=== PATIENT | female | born 1975 | race Caucasian/White ===

== ENCOUNTER 2016-08-17 16:10 | Emergency (ER) | payer OTHER ==
[2016-08-17 16:18] VITALS: TEMP 97.7; BMI 20.5
[2016-08-17] MEDS ORDERED: SODIUM CHLORIDE 0.9% 1000 ML INFUS.BAG IV ONE (16:35)
[2016-08-17] MEDS ORDERED: METOCLOPRAMIDE HCL INJECTION 10 MG/2 ML VIAL IVPB ONE (16:36)
[2016-08-17] MEDS ORDERED: KETOROLAC TROMETHAMINE 30 MG/1 ML VIAL IVPUSH ONE (16:36)
--- NOTE | 2016-08-17 16:41 | PDOC ---
[id number] 138/79 100 08/17/16 16:15 08/17/16 16:15 08/17/16 16:15 08/17/16 16:15 08/17/16 16:15 ED Treatment Course - LABORATORY CBC & Chemistry Diagram: 08/17/16 16:52 08/17/16 16:52 Progress Note - Progress Note Progress Note: brief triage assessment 41 y/o woman with htn and depression c/o headache for 2 weeks, and pressure on her chest for 2 days. Was seen at [facility] on Wednesday 8 days ago for chronic headache and had head ct and meds but the headache continues. She was told the head CT was normal. Feeling more depressed and saw her psychiatrist, started prozac on Wednesday, denies suicidal thoughts. exam with normal head and neck, clear lungs, heart rr nl, abd neg, extrem nl assess: chronic headache for weeks, no fever, no trauma, reports nl ct head 8 days ago depression under care of psychiatrist chest pressure will give meds for headache, toradol and reglan will check labs, troponin and ecg, although most likely symptoms related to depression for further evaluation *DC/Admit/Observation/Transfer Diagnosis at time of Disposition: Headache Qualifiers: Headache type: unspecified Headache chronicity pattern: unspecified pattern Intractability: not intractable Qualified Code(s): R51 - Headache - Discharge Dispostion Disposition: HOME Condition at time of disposition: Good - Referrals Referrals: Jeffrey Ortiz MD [Primary Care Provider] - 3 days - Patient Instructions Printed Discharge Instructions: DI for Headache Additional Instructions: -You were seen today for headache -Your labs were normal except for low potassium -Rest and stay well-hydrated -Take ibuprofen as prescribed for pain -Return here for sudden/worsening headache, weakness in your arms or legs, change in your speech, fever, difficulty walking, or any other concerning symptoms
--- NOTE | 2016-08-17 16:55 | PDOC ---
History of Present Illness - General Chief Complaint: Headache Stated Complaint: PAIN Time Seen by Provider: 08/17/16 16:27 History Source: Patient Exam Limitations: No Limitations - History of Present Illness Initial Comments: 08/17/16 16:55 CHIEF COMPLAINT: Headache HISTORY OF PRESENT ILLNESS: This is a 41 year old female with a history of HTN and depression (follows with a psychiatrist, recently started an SSRI) who presents complaining of headache for the past 2 weeks. She was seen in the ED at [facility] about one week ago and had a CT scan, which she reports was normal. She denies nausea/vomiting, change in vision, fevers/chills, weakness, difficulty ambulating, or any other symptoms. She initially reported chest pain in triage, but now denies. Vital signs on arrival are notable for pulse of 100. REVIEW OF SYSTEMS: GENERAL/CONSTITUTIONAL: No fever or chills. No weakness. No weight change. HEAD, EYES, EARS, NOSE AND THROAT: No change in vision. No ear pain or discharge. No sore throat. CARDIOVASCULAR: No chest pain or palpitations. RESPIRATORY: No cough, wheezing, or shortness of breath. GASTROINTESTINAL: No nausea, vomiting, diarrhea or constipation. GENITOURINARY: No dysuria, frequency, or change in urination. MUSCULOSKELETAL: No joint or muscle swelling or pain. Neck pain; no back pain. SKIN: No rash or easy bruising. NEUROLOGIC: Posterior headache and neck pain. No vertigo, loss of consciousness , or loss of sensation. PSYCHIATRIC: Depression; no SI/HI/AH/VH. ENDOCRINE: No increased thirst. No abnormal weight change. HEMATOLOGIC/LYMPHATIC: No anemia, easy bleeding, or history of blood clots. ALLERGIC/IMMUNOLOGIC: No hives or skin allergy. No latex allergy. PHYSICAL EXAM: GENERAL: The patient is awake, alert, and fully oriented, in no acute distress. ENT: Pupils equal, round and reactive to light, extraocular movements intact, sclera anicteric, conjunctiva clear. Neck supple; able to turn head right and left 45 degrees, look up and down without difficulty. LUNGS: Clear to auscultation bilaterally. Normal excursion. No respiratory distress or use of accessory muscles. CV: RRR, S1/S2, no MRG. Cap refill < 2 sec. ABDOMEN: Soft, non-distended, non-tender. EXTREMITIES: Normal range of motion, no edema. NEUROLOGICAL: Normal speech, normal gait. CN II-XII grossly intact. PSYCH: Normal mood, normal affect. SKIN: Warm, dry, normal turgor, no rashes or lesions noted. Past History - Past Medical History Allergies/Adverse Reactions: Allergies Allergy/AdvReac Type Severity Reaction Status Date / Time No Known Allergies Allergy Verified 08/17/16 16:14 Home Medications: Ambulatory Orders Fluoxetine HCl [Prozac -] 20 mg PO DAILY 08/17/16 Ibuprofen [Motrin -] 600 mg PO QID PRN #30 tablet 08/17/16 HTN: Yes - Psycho/Social/Smoking Cessation Hx Anxiety: No Suicidal Ideation: No Smoking History: Never smoked Have you smoked in the past 12 months: No Information on smoking cessation initiated: No Hx Alcohol Use: No Drug/Substance Use Hx: No Substance Use Type: None *Physical Exam - Vital Signs Last Vital Signs Temp Pulse Resp BP Pulse Ox 97.7 F 100 H 18 138/79 100 08/17/16 16:15 08/17/16 16:15 08/17/16 16:15 08/17/16 16:15 08/17/16 16:15 ED Treatment Course - LABORATORY CBC & Chemistry Diagram: 08/17/16 16:52 08/17/16 16:52 Medical Decision Making - Medical Decision Making 08/17/16 19:01 A/P: 41 year old female with persistent headache. No focal neurologic deficits, no meningismus. 1. EKG reviewed: NSR at 69bpm 2. Labs reviewed; troponin <0.02, K 3.2 - will replete with 40mg potassium PO 3. Reglan/Benadryl, Toradol, IV fluids given with relief of headache Patient feeling well enough to be discharged and follow up with PCP. Return precautions reviewed. *DC/Admit/Observation/Transfer Diagnosis at time of Disposition: Headache Qualifiers: Headache type: other headache syndrome Qualified Code(s): G44.89 - Other headache syndrome - Discharge Dispostion Admit: No - Prescriptions Prescriptions: Ibuprofen [Motrin -] 600 mg PO QID PRN #30 tablet PRN Reason: Pain - Referrals Referrals: Jeffrey Ortiz MD [Primary Care Provider] - 3 days - Patient Instructions Printed Discharge Instructions: DI for Headache Additional Instructions: -You were seen today for headache -Your labs were normal except for low potassium -Rest and stay well-hydrated -Take ibuprofen as prescribed for pain -Return here for sudden/worsening headache, weakness in your arms or legs, change in your speech, fever, difficulty walking, or any other concerning symptoms
[2016-08-17] MEDS ORDERED: METOCLOPRAMIDE HCL INJECTION 10 MG/2 ML VIAL ONE (17:12)
[2016-08-17] MEDS ORDERED: KETOROLAC TROMETHAMINE 30 MG/1 ML VIAL ONE (17:13)
[2016-08-17 17:15] LABS: BASOPHIL 0.6 % (0-2.0); EOSINOPHIL 0.3 % (0-4.5); MCH 30.8 pg (25.7-33.7); MCHC 33.9 g/dl (32.0-36.0); MEAN CELL VOLUME 90.9 fl (80-96); MEAN PLT VOLUME 9.1 fl (7.5-11.1); NEUTROPHILS 73.1 % (42.8-82.8); PLATELET COUNT 281 K/MM3 (134-434); RDW 13.3 % (11.6-15.6); WHITE BLOOD COUNT 9.1 K/mm3 (4.0-10.0)
[2016-08-17 17:28] LABS: ALBUMIN 4.5 g/dl (3.4-5.0); ANION GAP 8 (8-16); BILIRUBIN,TOTAL 0.7 mg/dL (0.2-1.0); CALCIUM 9.6 mg/dL (8.5-10.1); CO2 30 mmol/L (21-32); CREATININE 0.7 mg/dL (0.55-1.02); GLUCOSE,RANDOM 86 mg/dL (74-106); SGOT/AST 12 U/L (15-37); SGPT/ALT 22 U/L (12-78); TOT PROT 7.8 g/dl (6.4-8.2)
[2016-08-17 17:30] LABS: ALK PHOS 66 U/L (45-117); TROPONIN I < 0.02 ng/ml (0.00-0.05)
[2016-08-17] MEDS ORDERED: POTASSIUM CHLORIDE TABS 20 MEQ TABLET.ER (FP) PO ONE ×2 (18:48→18:59)
[2016-08-17 19:09] VITALS: BP 118/70; PULSE 78
== END 2016-08-17 19:08 | disposition home or self-care (01) ==
LOC: JER 16:10
PROC: 3E0333Z Introduction of Anti-inflammatory into Peripheral Vein, Percutaneous Approach (ICD-10-PCS; principal; 2016-08-17)
PROC: 3E033GC Introduction of Other Therapeutic Substance into Peripheral Vein, Percutaneous Approach (ICD-10-PCS; 2016-08-17)
DX: G44.89 Other headache syndrome (principal); F32.9 Major depressive disorder, single episode, unspecified
CPT/HCPCS: 36415; 80053; 82550; 84484; 85025; 96374; 96375; 99282-25

== ENCOUNTER → 2016-08-27 | Emergency (ER) | payer OTHER ==
[~2016-08-27] MED LIST: IBUPROFEN 600 MG TABLET (FP) PO ONE; METOCLOPRAMIDE HCL 10 MG TABLET (FP) PO ONE
[2016-08-27 21:44] VITALS: BP 146/93; PULSE 86; TEMP 97.8; BMI 20.9
--- NOTE | 2016-08-27 23:09 | PDOC ---
History of Present Illness - General History Source: Patient <Solis Cherry - Last Filed: 08/28/16 01:15> - General History Source: Patient Exam Limitations: No Limitations - History of Present Illness Initial Comments: 08/28/16 00:08 The patient is a 41 year old female, with a significant past medical history of hypertension and depression, who presents to the emergency department complaining of a headache for approximately 3 weeks. The patient reports her headache is intermittent. She states her pain radiates into her neck and forehead. She reports she presented to the ED approximately 11 days ago with similar symptoms. The patient reports she was given 600 mg of ibuprofen in triage, with no relief of symptoms. The patient denies any recent head trauma or LOC. The patient denies any fever, chills, cough, or dizziness. The patient denies any chest pain, shortness of breath, diaphoresis, or palpitations. The patient denies any nausea, vomiting, diarrhea, or constipation. The patient denies any recent travel or sick contacts. She reports her last menstrual period was 08/05/16. Allergies: None reported. Past Surgical History: None reported. Social History: Non-smoker. Denies alcohol or drug use. PCP: Dr. Ortiz <Lizbeth Rincon - Last Filed: 08/28/16 01:23> - General Chief Complaint: Head/Neck problem Stated Complaint: PAIN Time Seen by Provider: 08/27/16 21:36 Past History - Past Medical History HTN: Yes Psychiatric Problems: Yes (DEPRESSION) - Psycho/Social/Smoking Cessation Hx Anxiety: No Suicidal Ideation: No Smoking History: Never smoked Have you smoked in the past 12 months: No Information on smoking cessation initiated: No Hx Alcohol Use: No Drug/Substance Use Hx: No Substance Use Type: None <Solis Cherry - Last Filed: 08/28/16 01:15> <Lizbeth Rincon - Last Filed: 08/28/16 01:23> - Past Medical History Allergies/Adverse Reactions: Allergies Allergy/AdvReac Type Severity Reaction Status Date / Time No Known Allergies Allergy Verified 08/27/16 21:37 Home Medications: Ambulatory Orders Fluoxetine HCl [Prozac -] 20 mg PO DAILY 08/17/16 Hydrochlorothiazide [Hctz -] 12.5 mg PO DAILY 08/27/16 Ibuprofen [Motrin -] 600 mg PO QID PRN #30 tablet 08/28/16 Metoclopramide HCl [Reglan -] 10 mg PO TID #30 tablet 08/28/16 Review of Systems - Review of Systems Able to Perform ROS?: Yes Comments:: 08/28/16 00:08 CONSTITUTIONAL: Absent: fever, no chills, no fatigue EYES: Absent: visual changes ENT: Absent: ear pain, no sore throat CARDIOVASCULAR: Absent: chest pain, no palpitations RESPIRATORY: Absent: cough, no SOB GI: Absent: abdominal pain, no nausea, no vomiting, no constipation, no diarrhea GENITOURINARY: Absent: dysuria, no frequency, no hematuria MUSCULOSKELETAL: Absent: back pain, no arthralgia, no myalgia SKIN: Absent: rash NEURO: Present: +headache <Lizbeth Rincon - Last Filed: 08/28/16 01:23> *Physical Exam - Vital Signs Last Vital Signs Temp Pulse Resp BP Pulse Ox 97.8 F 86 14 146/93 97 08/27/16 21:40 08/27/16 21:40 08/27/16 21:40 08/27/16 21:40 08/27/16 21:40 <Solis Cherry - Last Filed: 08/28/16 01:15> - Vital Signs Last Vital Signs Temp Pulse Resp BP Pulse Ox 97.8 F 86 14 146/93 97 08/27/16 21:40 08/27/16 21:40 08/27/16 21:40 08/27/16 21:40 08/27/16 21:40 - Physical Exam Comments: 08/28/16 00:09 GENERAL: Well-appearing, well-nourished. No apparent distress. HEENT: Normocephalic, atraumatic. PERRL, EOM intact. CARDIOVASCULAR: Normal S1, S2. Regular rate and rhythm. PULMONARY: Clear to auscultation bilaterally. ABDOMEN: Soft, non-distended, non-tender. EXTREMITIES: Normal ROM in all four extremities. No gross deformities. SKIN: Warm, dry. No rash NEUROLOGICAL: No focal neurological deficits. <Lizbeth Rincon - Last Filed: 08/28/16 01:23> ED Treatment Course - Medications Given in the ED: ED Medications Discontinued Medications Generic Name Dose Route Start Last Admin Trade Name Freq PRN Reason Stop Dose Admin Ibuprofen 600 mg 08/27/16 21:46 08/27/16 21:51 Motrin - PO 08/27/16 21:47 600 mg ONCE ONE Administration <Solis Cherry - Last Filed: 08/28/16 01:15> - ADDITIONAL ORDERS Additional order review: Laboratory Results 08/27/16 23:40 Urine HCG, Qual Negative - RADIOLOGY Radiograph Interpretation: 08/28/16 01:22 EXAM: Head CT INTERPRETED BY: Dr. Scherer REVIEWED BY: Dr. Cherry IMPRESSION: No acute brain parenchymal abnormality. No hemorrhage, mass or acute territorial infarct. Clear visualized paranasal sinuses. Visualized mastoid air cells clear. - Medications Given in the ED: ED Medications Discontinued Medications Generic Name Dose Route Start Last Admin Trade Name Freq PRN Reason Stop Dose Admin Ibuprofen 600 mg 08/27/16 21:46 08/27/16 21:51 Motrin - PO 08/27/16 21:47 600 mg ONCE ONE Administration Metoclopramide HCl 10 mg 08/27/16 23:13 08/27/16 23:25 Reglan - PO 08/27/16 23:14 10 mg ONCE ONE Administration <Lizbeth Rincon - Last Filed: 08/28/16 01:23> Medical Decision Making - Medical Decision Making 08/28/16 01:20 Dr. Cherry: The scribe's documentation has been prepared under my direction and personally reviewed by me in its entirery. I confirm that the note above accurately reflects all work, treatment, procedures, and medical decision making performed by me. patient headache resolved. Patient advised to follow up with neurology as soon as possible if headache don't improve <Solis Cherry - Last Filed: 08/28/16 01:15> *DC/Admit/Observation/Transfer - Discharge Dispostion Admit: No <Solis Cherry - Last Filed: 08/28/16 01:15> - Attestations Scribe Attestion: 08/28/16 00:10 Documentation prepared by Lizbeth Rincon, acting as biomedical scientist for Solis Cherry DO. <Lizbeth Rincon - Last Filed: 08/28/16 01:23> Diagnosis at time of Disposition: Headache Qualifiers: Headache type: unspecified Headache chronicity pattern: unspecified pattern Intractability: not intractable Qualified Code(s): R51 - Headache - Discharge Dispostion Disposition: HOME Condition at time of disposition: Stable - Prescriptions Prescriptions: Ibuprofen [Motrin -] 600 mg PO QID PRN #30 tablet PRN Reason: Pain Metoclopramide HCl [Reglan -] 10 mg PO TID #30 tablet - Referrals Referrals: Jeffrey Ortiz MD [Primary Care Provider] - Zhang Gifford MD [Staff Physician] - - Patient Instructions Printed Discharge Instructions: DI for Headache
== END | disposition home or self-care (01) ==
LOC: JER 21:35
DX: R51 Headache (principal); I10 Essential (primary) hypertension; F32.9 Major depressive disorder, single episode, unspecified
CPT/HCPCS: 70450-TC; 84703; 99281-25

== ENCOUNTER → 2016-12-18 | Emergency (ER) | payer OTHER ==
[~2016-12-18] MED LIST changes: +ACETAMINOPHEN 1000 MG/100 ML VIAL (NON FORMULARY) IVPB ONE; +ACETAMINOPHEN INJECTION 100 ML IVPB ONE; -IBUPROFEN 600 MG TABLET (FP) PO ONE; -METOCLOPRAMIDE HCL 10 MG TABLET (FP) PO ONE; +METOCLOPRAMIDE HCL INJECTION 10 MG/2 ML VIAL IVPB ONE; +METOCLOPRAMIDE HCL INJECTION 10 MG/2 ML VIAL ONE; +SODIUM CHLORIDE 1,000 ML IV STA
[2016-12-18 19:26] VITALS: BP 151/83; PULSE 94; TEMP 98.2; BMI 26.6
--- NOTE | 2016-12-18 19:40 | PDOC ---
History of Present Illness - General History Source: Patient Exam Limitations: No Limitations - History of Present Illness Initial Comments: 12/18/16 20:14 The patient is a 41 year old female with no significant past medical history who presents to the ED with complaints of a headache for 1 week. The patient reports a progressively worsening pressure-like frontal headache radiating to the left and right side of her head. She also reports pain to the back of her head and to the back of her neck. Patient notes she cannot turn her head and cannot sleep secondary to the pain. She reports taking Ibuprofen 600 with slight relief of present symptoms. Patient reports similar symptoms in August 2016, and was seen in the ED and diagnosed with a migraine. Denies fevers or chills. Denies photophobia or phonophobia. Denies focal numbness, weakness, or tingling. Denies chest pain or shortness of breath. Denies abdominal pain, nausea, vomiting, or diarrhea. Denies any other symptoms. <Augusto Naik - Last Filed: 12/18/16 20:14> - General History Source: Patient Exam Limitations: No Limitations <Boilvar Chavez - Last Filed: 12/18/16 21:02> - General Chief Complaint: Migraine Headache Stated Complaint: HEADACHE Time Seen by Provider: 12/18/16 19:08 Past History <Augusto Naik - Last Filed: 12/18/16 20:14> - Past Medical History HTN: Yes Psychiatric Problems: Yes (DEPRESSION) - Psycho/Social/Smoking Cessation Hx Anxiety: No Suicidal Ideation: No Smoking History: Never smoked Have you smoked in the past 12 months: No Information on smoking cessation initiated: No Hx Alcohol Use: No Drug/Substance Use Hx: No Substance Use Type: None <Bolivar Chavez - Last Filed: 12/18/16 21:02> - Past Medical History Allergies/Adverse Reactions: Allergies Allergy/AdvReac Type Severity Reaction Status Date / Time No Known Allergies Allergy Verified 08/27/16 21:37 Home Medications: Ambulatory Orders Hydrochlorothiazide [Hctz -] 25 mg PO DAILY 08/27/16 Ibuprofen [Motrin -] 600 mg PO QID PRN #30 tablet 08/28/16 Metoclopramide HCl [Reglan] 10 mg PO Q6H PRN #15 tablet 12/18/16 Naproxen [Naprosyn -] 500 mg PO BID PRN #20 tablet 12/18/16 Review of Systems - Review of Systems Able to Perform ROS?: Yes Comments:: 12/18/16 20:14 GENERAL/CONSTITUTIONAL: No fever or chills. No weakness. HEAD, EYES, EARS, NOSE AND THROAT: No change in vision. No ear pain or discharge. No sore throat. CARDIOVASCULAR: No chest pain or shortness of breath. RESPIRATORY: No cough, wheezing, or hemoptysis. GASTROINTESTINAL: No nausea, vomiting, diarrhea or constipation. GENITOURINARY: No dysuria, frequency, or change in urination. MUSCULOSKELETAL:+ neck pain. No joint or muscle swelling or pain. No back pain. SKIN: No rash NEUROLOGIC: + headache No vertigo, loss of consciousness, or change in strength/ sensation. ENDOCRINE: No increased thirst. No abnormal weight change. HEMATOLOGIC/LYMPHATIC: No anemia, easy bleeding, or history of blood clots. ALLERGIC/IMMUNOLOGIC: No hives or skin allergy. All Other Systems: Reviewed and Negative <Augusto Naik - Last Filed: 12/18/16 20:14> *Physical Exam - Vital Signs Last Vital Signs Temp Pulse Resp BP Pulse Ox 98.2 F 94 H 18 151/83 97 12/18/16 19:07 12/18/16 19:07 12/18/16 19:07 12/18/16 19:07 12/18/16 19:07 - Physical Exam Comments: 12/18/16 20:15 GENERAL: Awake, alert, and fully oriented, in no acute distress HEAD: No signs of trauma EYES: PERRLA, EOMI, sclera anicteric, conjunctiva clear ENT: Auricles normal inspection, hearing grossly normal, nares patent, oropharynx clear without exudates. Moist mucosa NECK: Normal ROM, supple, no lymphadenopathy, JVD, or masses LUNGS: Breath sounds equal, clear to auscultation bilaterally. No wheezes, and no crackles HEART: Regular rate and rhythm, normal S1 and S2, no murmurs, rubs or gallops ABDOMEN: Soft, nontender, normoactive bowel sounds. No guarding, no rebound. No masses EXTREMITIES: Normal range of motion, no edema. No clubbing or cyanosis. No cords, erythema, or tenderness NEUROLOGICAL: Cranial nerves 2-12 intact. Sensations intact. No pronator drift. Normal speech Cerebellum signs normal, moving in all extremities. SKIN: Warm, Dry, normal turgor, no rashes or lesions noted. <Augusto Naik - Last Filed: 12/18/16 20:14> - Vital Signs Last Vital Signs Temp Pulse Resp BP Pulse Ox 98.2 F 94 H 18 151/83 97 12/18/16 19:07 12/18/16 19:07 12/18/16 19:07 12/18/16 19:07 12/18/16 19:07 <Bolivar Chavez - Last Filed: 12/18/16 21:02> ED Treatment Course - Medications Given in the ED: ED Medications Discontinued Medications Generic Name Dose Route Start Last Admin Trade Name Sigifredo PRN Reason Stop Dose Admin Acetaminophen 1,000 mg 12/18/16 19:32 12/18/16 20:04 Ofirmev Injection - IVPB 12/18/16 19:33 1,000 mg ONCE ONE Administration Metoclopramide HCl 10 mg 12/18/16 19:32 12/18/16 19:53 Reglan Injection - IVPB 12/18/16 19:33 10 mg ONCE ONE Administration <Augusto Naik - Last Filed: 12/18/16 20:14> Medical Decision Making - Medical Decision Making 12/18/16 19:37 A portion of this note was documented by scribe services under my direction. I have reviewed the details of the note, within reason, and agree with the documentation with the following case summary and management plan written by me. Patient treated in the ED. Nursing notes are reviewed and incorporated into the medical decision-making. Vital signs reviewed. Peripheral IV access obtained by the nurse, laboratory studies are drawn and sent, reviewed and interpreted by myself. Vital Signs Temp Pulse Resp BP Pulse Ox 98.2 F 94 H 18 151/83 97 12/18/16 19:07 12/18/16 19:07 12/18/16 19:07 12/18/16 19:07 12/18/16 19:07 41-year-old female with past medical history of hypertension, migraines presents with migrainous-like headaches. Reports some photophobia and tension- like headache in the posterior component. Denies nausea or vomiting. States that the headache is been intermittent for last week. Has been taking ibuprofen which has helped with the headache would recur. States that this is similar headache as of report. Patient was given a dose of Tylenol Reglan and IV fluids with significant improvement headache. This is likely migraines. We'll give referral to a neurologist. I discussed the physical exam findings, ancillary test results and final diagnoses with the patient. I answered all of the patient's questions. The patient was satisfied with the care received and felt comfortable with the discharge plan and treatment plan. The patient will call their primary care physician within 24 hours to arrange follow-up and will return to the Emergency Department with any new, persistant or worsening symptoms. <Bolivar Chavez - Last Filed: 12/18/16 21:02> *DC/Admit/Observation/Transfer - Attestations Scribe Attestion: 12/18/16 20:15 Documentation prepared by Augusto Naik, acting as medical care evaluation specialist for Bolivar Chavez MD <Augusto Naik - Last Filed: 12/18/16 20:14> <Bolivar Chavez - Last Filed: 12/18/16 21:02> Diagnosis at time of Disposition: Headache Qualifiers: Headache type: unspecified Headache chronicity pattern: acute headache Intractability: not intractable Qualified Code(s): R51 - Headache - Discharge Dispostion Disposition: HOME Condition at time of disposition: Improved - Prescriptions Prescriptions: Naproxen [Naprosyn -] 500 mg PO BID PRN #20 tablet PRN Reason: Headache Metoclopramide HCl [Reglan] 10 mg PO Q6H PRN #15 tablet PRN Reason: Headache/Nausea - Referrals Referrals: Terrell Kauffman MD [Staff Physician] - - Patient Instructions Printed Discharge Instructions: DI for Migraine, Migraine Headaches ( Alternative Therapy) Additional Instructions: Take 500 mg naproxen every 12 hours as needed for headache. For additional relief, take 10 mg reglan every 6 hours as needed for headache/ nausea. Drink plenty of fluids and rest. If you have uncontrollable headaches, please return to the ER for further evaluation. Print Language: AZERI
== END | disposition home or self-care (01) ==
LOC: JER 18:54
PROC: 3E0337Z Introduction of Electrolytic and Water Balance Substance into Peripheral Vein, Percutaneous Approach (ICD-10-PCS; principal; 2016-12-18)
PROC: 3E033NZ Introduction of Analgesics, Hypnotics, Sedatives into Peripheral Vein, Percutaneous Approach (ICD-10-PCS; 2016-12-18)
PROC: 3E033GC Introduction of Other Therapeutic Substance into Peripheral Vein, Percutaneous Approach (ICD-10-PCS; 2016-12-18)
DX: R51 Headache (principal)
CPT/HCPCS: 96361; 96374; 96375; 99282-25

== ENCOUNTER 2017-05-19 06:08 | Emergency (ER) | payer OTHER ==
[2017-05-19 06:23] VITALS: TEMP 98.1; BMI 22.4
[2017-05-19] MEDS ORDERED: METOCLOPRAMIDE HCL INJECTION 10 MG/2 ML VIAL IVPB ONE (06:54)
[2017-05-19] MEDS ORDERED: SODIUM CHLORIDE 1,000 ML IV ONE (06:54)
[2017-05-19] MEDS ORDERED: METOCLOPRAMIDE HCL INJECTION 10 MG/2 ML VIAL ONE (06:57)
[2017-05-19] MEDS ORDERED: KETOROLAC TROMETHAMINE 30 MG/1 ML VIAL IVPUSH ONE (07:24)
--- NOTE | 2017-05-19 07:30 | PDOC ---
History of Present Illness - General Chief Complaint: Blood Pressure Problem Stated Complaint: HEAD PAIN Time Seen by Provider: 05/19/17 07:04 History Source: Patient - History of Present Illness Timing/Duration: reports: other (4 days) Severity: Yes: severe Associated Symptoms: denies: nausea/vomiting Past History - Past Medical History Allergies/Adverse Reactions: Allergies Allergy/AdvReac Type Severity Reaction Status Date / Time No Known Allergies Allergy Verified 05/19/17 06:21 Home Medications: Ambulatory Orders Acetaminophen/Caffeine/Butalb [Fioricet -] 50 tab PO Q6H 05/19/17 Metoprolol Tartrate 25 mg PO DAILY 05/19/17 Nortriptyline HCl [Pamelor] 250 mg PO HS 05/19/17 COPD: No HTN: Yes Psychiatric Problems: Yes (DEPRESSION) - Suicide/Smoking/Psychosocial Hx Smoking History: Never smoked Have you smoked in the past 12 months: No Information on smoking cessation initiated: No Hx Alcohol Use: No Drug/Substance Use Hx: No Substance Use Type: None Review of Systems - Review of Systems Constitutional: No: Chills, Fever HEENTM: No: Blurred Vision ABD/GI: No: Nausea, Vomiting Neurological: No: Headache, Numbness, Weakness, Dizziness *Physical Exam - Vital Signs Last Vital Signs Temp Pulse Resp BP Pulse Ox 98.1 F 94 H 14 158/109 100 05/19/17 06:21 05/19/17 06:21 05/19/17 06:21 05/19/17 06:21 05/19/17 06:21 - Physical Exam General Appearance: Yes: Appropriately Dressed, Mild Distress HEENT: positive: Normal Voice Neck: positive: Supple Respiratory/Chest: negative: Respiratory Distress Integumentary: positive: Dry, Warm Neurologic: positive: Fully Oriented, Alert, Normal Mood/Affect, Motor Strength /5 ED Treatment Course - Medications Given in the ED: ED Medications Discontinued Medications Generic Name Dose Route Start Last Admin Trade Name Freq PRN Reason Stop Dose Admin Diphenhydramine HCl 25 mg 05/19/17 06:54 05/19/17 07:13 Benadryl Injection - IVPUSH 05/19/17 06:55 25 mg ONCE ONE Administration Metoclopramide HCl 10 mg 05/19/17 06:54 05/19/17 07:14 Reglan Injection - IVPB 05/19/17 06:55 10 mg ONCE ONE Administration Medical Decision Making - Medical Decision Making 05/19/17 07:24 42-year-old female, endorses history of migraines currently, on fioricit and nortriptyline,and HTN, recently started on metoprolol, here with headache similar to her migraines. Patient complaining of severe diffuse headache, throbbing in nature and mostly constant, with the severity of 7 out of 10. Denies dizziness, visual changes, nausea, vomiting. States despite recently having the doses of her migraine medications increased, her headache persists. Has upcoming neuro appointment. Has had CT and MRI in the past with negative findings per pt See exam Migraine flare Not improved w/ home meds which were recently adjusted Neg CT/MRI in past Has upcoming neuro appt Appears uncomfortable w/ elevated BP in ED w/ no focal deficits -pain control and reassess 05/19/17 08:15 05/19/17 09:33 Patient reports significant improvement of pain with meds feels comfortable going home. Will continue home meds and follow-up with her neurologist as already scheduled *DC/Admit/Observation/Transfer Diagnosis at time of Disposition: Migraine Qualifiers: Migraine type: unspecified Status migrainosus presence: without status migrainosus Intractability: not intractable Qualified Code(s): G43.909 - Migraine, unspecified, not intractable, without status migrainosus - Discharge Dispostion Disposition: HOME Condition at time of disposition: Improved - Referrals Referrals: Dane Hancock [Primary Care Provider] - - Patient Instructions Printed Discharge Instructions: Migraine -- Adult Additional Instructions: Continue to take your home medications and follow-up with your neurologist as scheduled on June 07 - Post Discharge Activity
[2017-05-19 08:33] VITALS: BP 131/91; PULSE 87
== END 2017-05-19 09:52 | disposition home or self-care (01) ==
LOC: JER 06:08
PROC: 3E033GC Introduction of Other Therapeutic Substance into Peripheral Vein, Percutaneous Approach (ICD-10-PCS; principal; 2017-05-19)
PROC: 3E0333Z Introduction of Anti-inflammatory into Peripheral Vein, Percutaneous Approach (ICD-10-PCS; 2017-05-19)
PROC: 3E0337Z Introduction of Electrolytic and Water Balance Substance into Peripheral Vein, Percutaneous Approach (ICD-10-PCS; 2017-05-19)
DX: G43.909 Migraine, unspecified, not intractable, without status migrainosus (principal); I10 Essential (primary) hypertension; F32.9 Major depressive disorder, single episode, unspecified
CPT/HCPCS: 84703; 96361; 96374; 96375; 99283-25

== ENCOUNTER 2017-09-16 19:26 | Emergency (ER) | payer OTHER ==
--- NOTE | 2017-09-16 19:37 | PDOC ---
Rapid Medical Evaluation Time Seen by Provider: 09/16/17 19:31 Medical Evaluation: Allergies Allergy/AdvReac Type Severity Reaction Status Date / Time No Known Allergies Allergy Verified 05/19/17 06:21 09/16/17 19:32 42 year old female with HTN with 5 days of headache and neck pain. Also reports "stress." Seen at [facility] today and given an "injection." After dc, had 5- 6 episodes of vomiting. Some relief of headache/neck pain with Motrin. Last took last night. Patient states her main issue tonight is anxiety. Takes nortrypteline. BP 155/100 -Basic labs -To Main ED for further evaluation
[2017-09-16 19:39] VITALS: BP 155/100; PULSE 95; TEMP 98.4; BMI 23.1
[2017-09-16 21:03] LABS: BASO % 0.4 % (0-2.0); EOS % 0.1 % (0-4.5); HEMATOCRIT 40.9 % (32.4-45.2); HEMOGLOBIN 14.1 GM/dL (10.7-15.3); MCH 31.6 pg (25.7-33.7); MCHC 34.4 g/dl (32.0-36.0); MEAN CELL VOLUME 91.8 fl (80-96); MEAN PLT VOLUME 9.1 fl (7.5-11.1); MONO % 6.1 % (3.8-10.2); NEUT % 79.4 % (42.8-82.8); PLATELET COUNT 277 K/MM3 (134-434); RBC 4.45 M/mm3 (3.60-5.2); RDW 13.4 % (11.6-15.6); WHITE BLOOD COUNT 10.7 K/mm3 (4.0-10.0)
[2017-09-16 21:07] LABS: URINE APPEARANCE CLEAR; URINE BILIRUBIN NEGATIVE (NEGATIVE); URINE BLOOD 3+ (NEGATIVE); URINE COLOR LTYELLOW; URINE GLUCOSE (UA) NEGATIVE (NEGATIVE); URINE KETONE NEGATIVE (NEGATIVE); URINE LEUK ESTERASE NEGATIVE (NEGATIVE); URINE NITRITE NEGATIVE (NEGATIVE); URINE PROTEIN NEGATIVE (NEGATIVE); URINE UROBILINOGEN NEGATIVE mg/dL (0.2-1.0)
[2017-09-16 21:09] LABS: HCG,QUALITATIVE URINE NEGATIVE
[2017-09-16 21:10] LABS: EPI CELLS RARE /HPF (FEW); URINE MUCUS RARE
[2017-09-16 21:49] LABS: ANION GAP 8 (8-16); BLOOD UREA NITROGEN 10 mg/dL (7-18); CALCIUM 9.3 mg/dL (8.5-10.1); CHLORIDE 100 mmol/L (98-107); CO2 29 mmol/L (21-32); CREATININE 0.7 mg/dL (0.55-1.02); GLUCOSE,RANDOM 87 mg/dL (74-106); POTASSIUM 3.4 mmol/L (3.5-5.1); SODIUM 137 mmol/L (136-145)
[2017-09-17] MEDS ORDERED: FAMOTIDINE IV 20 MG/12 ML VIAL IVPUSH ONE (01:21)
[2017-09-17] MEDS ORDERED: KETOROLAC TROMETHAMINE 30 MG/1 ML VIAL IVPUSH ONE (01:21)
[2017-09-17] MEDS ORDERED: METOCLOPRAMIDE HCL INJECTION 10 MG/2 ML VIAL IVPUSH ONE (01:21)
[2017-09-17] MEDS ORDERED: KETOROLAC TROMETHAMINE 30 MG/1 ML VIAL ONE (02:11)
[2017-09-17] MEDS ORDERED: FAMOTIDINE 20 MG/50 ML IVPB 20 MG/50 ML MG IVPB ONE (02:11)
[2017-09-17] MEDS ORDERED: METOCLOPRAMIDE HCL INJECTION 10 MG/2 ML VIAL ONE (02:11)
--- NOTE | 2017-09-17 05:19 | PDOC ---
History of Present Illness - General Chief Complaint: Pain Stated Complaint: HEAD/NECK PROBLEM Time Seen by Provider: 09/16/17 19:31 History Source: Patient Exam Limitations: No Limitations - History of Present Illness Initial Comments: 09/17/17 05:14 Patient is a 42-year-old female with history of migraine, hypertension, complaining off suprapubic pain 5 days and a headache which she describes as a migraine which started today. States her pains is 7/10, abdomen crampy type, currently menstruating. BUTCHER is shrap throbbing consistent with migraine headache. She took her migraine medicines last time a day ago. No meds today. She has some nausea and vomiting, no diarrhea or constipation. States frequency of urination. PMD: Dr. Dane Vilchis PMHX: as above PSOCHX: neg etoh, drugs, cig ALL: NKDA GENERAL/CONSTITUTIONAL: [No fever or chills. No weakness. No weight change.] HEAD, EYES, EARS, NOSE AND THROAT: [No change in vision. No ear pain or discharge. No sore throat.] CARDIOVASCULAR: [No chest pain or shortness of breath.] RESPIRATORY: [No cough, wheezing, or hemoptysis.] GASTROINTESTINAL: (+) nausea, vomiting, (-) diarrhea or constipation. No rectal bleeding.] GENITOURINARY: [No dysuria, frequency, or change in urination.] MUSCULOSKELETAL: [No joint or muscle swelling or pain. No neck or back pain.] SKIN AND BREASTS: [No rash or easy bruising.] NEUROLOGIC: (+) headache, vertigo, loss of consciousness, or loss of sensation.] PSYCHIATRIC: [No depression or anxiety.] ENDOCRINE: [No increased thirst. No abnormal weight change.] HEMATOLOGIC/LYMPHATIC: [No anemia, easy bleeding, or history of blood clots.] ALLERGIC/IMMUNOLOGIC: [No hives or skin allergy. No latex allergy.] GENERAL: [The patient is awake, alert, and fully oriented, in no acute distress. ] HEAD: [Normal with no signs of trauma.] EYES: [Pupils equal, round and reactive to light, extraocular movements intact, sclera anicteric, conjunctiva clear.] ENT: [Ears normal, nares patent, oropharynx clear without exudates. Moist mucous membranes.] NECK: [Normal range of motion, supple without lymphadenopathy, JVD, or masses.] LUNGS: [Breath sounds equal, clear to auscultation bilaterally. No wheezes, and no crackles.] HEART: [Regular rate and rhythm, normal S1 and S2 without murmur, rub.] ABDOMEN: [Soft, (+) suprapubic tenderness, normoactive bowel sounds. No guarding, no rebound. No masses.] EXTREMITIES: [Normal range of motion, no edema. No clubbing or cyanosis. No cords, erythema, or tenderness.] NEUROLOGICAL: [Cranial nerves II through XII grossly intact. Normal speech, normal gait.] PSYCH: [Normal mood, normal affect.] SKIN: [Warm, Dry, normal turgor, no rashes or lesions noted.] Past History - Past Medical History Allergies/Adverse Reactions: Allergies Allergy/AdvReac Type Severity Reaction Status Date / Time No Known Allergies Allergy Verified 09/16/17 19:36 Home Medications: Ambulatory Orders Acetaminophen/Caffeine/Butalb [Fioricet -] 50 tab PO Q6H 05/19/17 Metoprolol Tartrate 25 mg PO DAILY 05/19/17 Nortriptyline HCl [Pamelor] 250 mg PO HS 05/19/17 Ibuprofen [Motrin -] 600 mg PO QID #28 tablet 09/17/17 Metoclopramide HCl [Reglan] 10 mg PO TID #20 tablet 09/17/17 COPD: No HTN: Yes Psychiatric Problems: Yes (DEPRESSION) - Suicide/Smoking/Psychosocial Hx Smoking History: Never smoked Have you smoked in the past 12 months: No Information on smoking cessation initiated: No Hx Alcohol Use: No Drug/Substance Use Hx: No Substance Use Type: None *Physical Exam - Vital Signs Last Vital Signs Temp Pulse Resp BP Pulse Ox 98.4 F 95 H 20 155/100 99 09/16/17 19:36 09/16/17 19:36 09/16/17 19:36 09/16/17 19:36 09/16/17 19:36 ED Treatment Course - LABORATORY CBC & Chemistry Diagram: 09/16/17 20:52 09/16/17 20:52 - ADDITIONAL ORDERS Additional order review: Laboratory Results 09/16/17 09/16/17 20:52 20:52 Sodium 137 Potassium 3.4 L Chloride 100 Carbon Dioxide 29 Anion Gap 8 BUN 10 Creatinine 0.7 Random Glucose 87 Calcium 9.3 Urine Color Ltyellow Urine Appearance Clear Urine pH 7.0 Ur Specific [place] 1.015 Urine Protein Negative Urine Glucose (UA) Negative Urine Ketones Negative Urine Blood 3+ H Urine Nitrite Negative Urine Bilirubin Negative Urine Urobilinogen Negative Ur Leukocyte Esterase Negative Urine WBC (Auto) 6 Urine RBC (Auto) 94 Ur Epithelial Cells Rare Urine Mucus Rare Urine HCG, Qual Negative 09/16/17 20:52 RBC 4.45 MCV 91.8 MCHC 34.4 RDW 13.4 MPV 9.1 Neutrophils % 79.4 Lymphocytes % 14.0 Monocytes % 6.1 Eosinophils % 0.1 Basophils % 0.4 - Medications Given in the ED: ED Medications Discontinued Medications Generic Name Dose Route Start Last Admin Trade Name Sigifredo PRN Reason Stop Dose Admin Diphenhydramine HCl 50 mg 09/17/17 01:21 09/17/17 02:18 Benadryl Injection - IVPB 09/17/17 01:22 50 mg ONCE ONE Administration Famotidine 20 mg in 12 mls @ 144 mls/hr 09/17/17 01:21 09/17/17 02:18 Pepcid 20 Mg/12 Ml Push IVPUSH 09/17/17 01:25 144 mls/hr ONCE ONE Administration Ketorolac Tromethamine 30 mg 09/17/17 01:21 09/17/17 02:18 Toradol Injection - IVPUSH 09/17/17 01:22 30 mg ONCE ONE Administration Metoclopramide HCl 10 mg 09/17/17 01:21 09/17/17 02:18 Reglan Injection - IVPUSH 09/17/17 01:22 10 mg ONCE ONE Administration Medical Decision Making - Medical Decision Making 09/17/17 05:19 Patient is a 42-year-old female with history of migraine, hypertension, complaining off suprapubic pain 5 days and a headache which she describes as a migraine which started today. The pain seems to correlate with her. However we will rule out UTI. Acute headache most likely exacerbated by her menstrual. Will treat as a migraine headache with Toradol, Reglan, Benadryl, IVF Patient is currently improved and requesting to go home, tolerating by mouth. I discussed the physical exam findings, ancillary test results and final diagnoses with the patient. I answered all of the patient's questions. The patient was satisfied with the care received and felt comfortable with the discharge plan and treatment plan. The Patient agrees to follow up with the primary care physician within 24-72 hours. *DC/Admit/Observation/Transfer Diagnosis at time of Disposition: Suprapubic pain Migraine headache Qualifiers: Migraine type: unspecified Status migrainosus presence: without status migrainosus Intractability: not intractable Qualified Code(s): G43.909 - Migraine, unspecified, not intractable, without status migrainosus - Discharge Dispostion Disposition: HOME Condition at time of disposition: Stable - Prescriptions Prescriptions: Ibuprofen [Motrin -] 600 mg PO QID #28 tablet Metoclopramide HCl [Reglan] 10 mg PO TID #20 tablet - Referrals Referrals: Dane Hancock [Primary Care Provider] - - Patient Instructions Printed Discharge Instructions: DI for Migraine, DI for Abdominal Pain-Adult Additional Instructions: Your Discharge Instructions: You must call primary care physician within 24 hours to arrange follow-up. Return to the Emergency Department with any new, persistent or worsening symptoms, for fever, chills, SOB, dizziness or any other concerning changes that may occur. Continue Tylenol and Motrin and your migraine medicines as prescribed. Print Language: ITALIAN - Post Discharge Activity
== END 2017-09-17 06:16 | disposition home or self-care (01) ==
LOC: JER 19:26
PROC: 3E033GC Introduction of Other Therapeutic Substance into Peripheral Vein, Percutaneous Approach (ICD-10-PCS; principal; 2017-09-16)
PROC: 3E033GC Introduction of Other Therapeutic Substance into Peripheral Vein, Percutaneous Approach (ICD-10-PCS; 2017-09-16)
PROC: 3E0333Z Introduction of Anti-inflammatory into Peripheral Vein, Percutaneous Approach (ICD-10-PCS; 2017-09-16)
DX: G43.909 Migraine, unspecified, not intractable, without status migrainosus (principal); I10 Essential (primary) hypertension; F32.9 Major depressive disorder, single episode, unspecified
CPT/HCPCS: 36415; 80048; 81003; 81015; 84703; 85025; 99283-25

== ENCOUNTER 2017-11-14 20:57 | Emergency (ER) | payer OTHER ==
[2017-11-14 21:04] VITALS: BP 156/101; PULSE 90; TEMP 97.2; BMI 23.1
--- NOTE | 2017-11-14 21:53 | PDOC ---
History of Present Illness - General Chief Complaint: Cold Symptoms Stated Complaint: ALLERGIC REACTION Time Seen by Provider: 11/14/17 21:33 History Source: Patient Exam Limitations: Language Barrier ([employer] #[id number]) - History of Present Illness Initial Comments: 11/14/17 21:44 42-year-old woman past medical history of hypertension and migraines who presents emergency Department with 3 days of moist cough, rhinorrhea, nasal congestion and is nonpruritic rash to cheeks. Patient has not tried any over-the -counter medications to relieve symptoms. She denies fevers, chills, headaches, blurry vision, shortness of breath, dizziness, chest pain. Past History - Past Medical History Allergies/Adverse Reactions: Allergies Allergy/AdvReac Type Severity Reaction Status Date / Time No Known Allergies Allergy Verified 11/14/17 21:01 Home Medications: Ambulatory Orders Acetaminophen/Caffeine/Butalb [Fioricet -] 50 tab PO Q6H 05/19/17 Metoprolol Tartrate 25 mg PO DAILY 05/19/17 Nortriptyline HCl [Pamelor] 250 mg PO HS 05/19/17 Ibuprofen [Motrin -] 600 mg PO QID #28 tablet 09/17/17 Metoclopramide HCl [Reglan] 10 mg PO TID #20 tablet 09/17/17 COPD: No HTN: Yes Psychiatric Problems: Yes (DEPRESSION) - Suicide/Smoking/Psychosocial Hx Smoking History: Never smoked Have you smoked in the past 12 months: No Hx Alcohol Use: No Drug/Substance Use Hx: No Substance Use Type: None Review of Systems - Review of Systems Able to Perform ROS?: Yes Is the patient limited Libyan proficient: Yes Constitutional: No: Symptoms Reported HEENTM: Yes: See HPI Respiratory: Yes: See HPI Cardiac (ROS): No: Symptoms Reported ABD/GI: No: Symptoms Reported : No: Symptoms Reported Musculoskeletal: No: Symptoms Reported Integumentary: No: Symptoms Reported Neurological: No: Symptoms reported *Physical Exam - Vital Signs Last Vital Signs Temp Pulse Resp BP Pulse Ox 97.2 F L 90 18 156/101 100 11/14/17 21:02 11/14/17 21:02 11/14/17 21:02 11/14/17 21:02 11/14/17 21:02 - Physical Exam General Appearance: Yes: Appropriately Dressed. No: Apparent Distress HEENT: positive: TMs Normal, Pharynx Normal, Other (Inflamed nasal turbinates bilaterally) Neck: positive: Trachea midline, Supple Respiratory/Chest: positive: Lungs Clear, Normal Breath Sounds. negative: Respiratory Distress, Accessory Muscle Use Cardiovascular: positive: Regular Rhythm, Regular Rate. negative: Murmur Gastrointestinal/Abdominal: positive: Normal Bowel Sounds, Soft. negative: Tender Musculoskeletal: positive: Normal Inspection. negative: CVA Tenderness Extremity: positive: Normal Inspection, Normal Range of Motion Integumentary: positive: Normal Color, Dry, Warm Neurologic: positive: Alert, Normal Response Medical Decision Making - Medical Decision Making 11/14/17 21:46 A/P: 42-year-old woman history of hypertension and migraines with 3 days of ALLERGIC rhinitis symptoms TMs within normal limits bilaterally. External auditory canals clear without erythema or exudates. Inflamed nasal turbinates noted bilaterally. Oropharynx clear without erythema or exudates. Mucous noted to the posterior oropharynx Speaking full sentences. Lungs clear to auscultation bilaterally [place] raised rash noted to bilateral nasolabial folds I'll have the patient treat symptoms with [id number] medications. Patient verbalizes understanding of discharge instructions *DC/Admit/Observation/Transfer Diagnosis at time of Disposition: Allergic rhinitis Qualifiers: Allergic rhinitis trigger: unspecified Allergic rhinitis seasonality: seasonal Qualified Code(s): J30.2 - Other seasonal allergic rhinitis - Discharge Dispostion Disposition: HOME Condition at time of disposition: Stable Decision to Admit order: No - Referrals Referrals: Dane Hancock [Primary Care Provider] - - Patient Instructions Additional Instructions: Rest, drink lots of fluids: Teas, water, soups Saltwater gargles. Consider humidifier in room at night Steamy showers/seem to face break up mucus Avoid contact with allergens, exposure to pollens, close windows on a windy day Lots of handwashing and good hygiene Continue [id number] medications for symptomatic relief- may use allergic eyedrops for itching I Continue antihistamines daily until pollen season is over; Zyrtec, Claritin, Migdalia during the daytime and Benadryl at nighttime as will make sleepy Tylenol or Motrin for fever and pain Followup with private physician in one to 2 days as needed Consider following up with an hybrid technologist/agency manager for skin testing and possible allergy shots Return to emergency department for worsened symptoms, fevers, dehydration [place], klaudia muchos lquidos: ts, agua, sopas Grgaras de agua salada. Considere el humidificador en la habitacin por la noche Las duchas con agua parecen romper la mucosidad Evite el contacto con alrgenos, la exposicin al polen, cierre las ventanas en un da ventoso Mucho lavado de mo y buena higiene Contine tomando medicamentos de venta jailene para aliviar los sntomas: puede usar gotas para los ojos alrgicos para la picazn I Contine con los antihistamnicos diariamente hasta que la temporada de polen haya terminado; Zyrtec, Claritin, Migdalia alyce el da y Benadryl por la noche , ya que adormecern Tylenol o Motrin para la fiebre y el dolor Seguimiento con un mdico privado en genoveva o dos yoder segn sea necesario Considere seguir con un alerglogo / dermatlogo para pruebas cutneas y posibles vacunas contra la alergia Regrese al departamento de emergencias por sntomas empeorados, fiebre, deshidratacin - Post Discharge Activity
== END 2017-11-14 22:09 | disposition home or self-care (01) ==
LOC: JERFT 20:57
DX: J30.2 Other seasonal allergic rhinitis (principal); I10 Essential (primary) hypertension; F32.9 Major depressive disorder, single episode, unspecified
CPT/HCPCS: 99281-25

== ENCOUNTER 2017-12-15 02:58 | Emergency (ER) | payer OTHER ==
[2017-12-15 03:47] VITALS: BP 151/99; PULSE 70; TEMP 98.2; BMI 22.3
--- NOTE | 2017-12-15 03:50 | PDOC ---
History of Present Illness - General Chief Complaint: Head/Neck problem Stated Complaint: NECK/HEAD PAIN Time Seen by Provider: 12/15/17 03:42 History Source: Patient - History of Present Illness Initial Comments: 12/15/17 04:08 42-year-old female with history of migraines complaining of headache for 6 days with no relief. patient has tried ibuprofen at home continues to have persistent headache. Patient reports positive photophobia and slight nausea. Past History - Past Medical History Allergies/Adverse Reactions: Allergies Allergy/AdvReac Type Severity Reaction Status Date / Time No Known Allergies Allergy Verified 12/15/17 03:47 Home Medications: Ambulatory Orders Acetaminophen/Caffeine/Butalb [Fioricet -] 50 tab PO Q6H 05/19/17 Metoprolol Tartrate 25 mg PO DAILY 05/19/17 Nortriptyline HCl [Pamelor] 250 mg PO HS 05/19/17 Ibuprofen [Motrin -] 600 mg PO QID #28 tablet 09/17/17 Metoclopramide HCl [Reglan] 10 mg PO TID #20 tablet 09/17/17 COPD: No HTN: Yes Psychiatric Problems: Yes (DEPRESSION) - Suicide/Smoking/Psychosocial Hx Smoking History: Never smoked Have you smoked in the past 12 months: No Information on smoking cessation initiated: No Hx Alcohol Use: No Drug/Substance Use Hx: No Substance Use Type: None Review of Systems - Review of Systems Able to Perform ROS?: Yes Is the patient limited Thai proficient: No Constitutional: No: Symptoms Reported, See HPI, Chills, Diaphoresis, Fever, Loss of Appetite, Malaise, Night Sweats, Weakness, Weight Stable, Unintentional Wgt. Loss, Unexplained wgt Loss, Other Neurological: Yes: Headache, Other (photophobia). No: Symptoms reported, See HPI, Numbness, Paresthesia, Pre-Existing Deficit, Seizure, Tingling, Tremors, Weakness, Unsteady Gait, Ataxia, Dizziness Psychiatric: No: Anxiety, Depression, Frequent Crying, Stressors, Sleep Pattern Change, Emotional Problems, Mood Swings, Change in Appetite, Other *Physical Exam - Vital Signs Last Vital Signs Temp Pulse Resp BP Pulse Ox 98.2 F 70 19 151/99 100 12/15/17 03:36 12/15/17 03:36 12/15/17 03:36 12/15/17 03:36 12/15/17 03:36 - Physical Exam General Appearance: Yes: Appropriately Dressed Respiratory/Chest: positive: Lungs Clear, Normal Breath Sounds Gastrointestinal/Abdominal: positive: Normal Bowel Sounds, Soft Musculoskeletal: positive: Normal Inspection Extremity: positive: Normal Capillary Refill, Normal Inspection, Normal Range of Motion Integumentary: positive: Normal Color, Dry, Warm Neurologic: positive: Fully Oriented, Alert, Normal Mood/Affect ED Treatment Course - LABORATORY CBC & Chemistry Diagram: 12/15/17 04:33 12/15/17 04:33 Medical Decision Making - Medical Decision Making 12/15/17 06:56 feeling better. will d/c home *DC/Admit/Observation/Transfer Diagnosis at time of Disposition: Migraine Qualifiers: Migraine type: unspecified Status migrainosus presence: without status migrainosus Intractability: not intractable Qualified Code(s): G43.909 - Migraine, unspecified, not intractable, without status migrainosus - Discharge Dispostion Condition at time of disposition: Fair - Referrals Referrals: Dane Hancock [Primary Care Provider] - Wilfredo Florian DO [Staff Physician] - Call tomorrow - Patient Instructions Printed Discharge Instructions: Migraine -- Adult Additional Instructions: drink plenty of fluids. follow up with your doctor as soon as possible return to the ER if symptoms worsen - Post Discharge Activity Forms/Work/School Notes: Back to Work
[2017-12-15] MEDS ORDERED: SODIUM CHLORIDE 1,000 ML IV ONE (03:58)
[2017-12-15] MEDS ORDERED: METOCLOPRAMIDE HCL INJECTION 10 MG/2 ML VIAL IVPB STA (03:58)
--- NOTE | 2017-12-15 04:06 | PDOC ---
*Physical Exam - Vital Signs Last Vital Signs Temp Pulse Resp BP Pulse Ox 98.2 F 70 19 151/99 100 12/15/17 03:36 12/15/17 03:36 12/15/17 03:36 12/15/17 03:36 12/15/17 03:36 ED Treatment Course - LABORATORY CBC & Chemistry Diagram: 12/15/17 04:33 12/15/17 04:33 Medical Decision Making - Medical Decision Making 12/15/17 04:06 agree with care from CHYNA Goss *DC/Admit/Observation/Transfer Diagnosis at time of Disposition: Migraine - Discharge Dispostion Condition at time of disposition: Fair - Referrals Referrals: Wilfredo Florian DO [Staff Physician] - Call tomorrow Dane Hancock [Primary Care Provider] - - Patient Instructions Printed Discharge Instructions: Migraine -- Adult Additional Instructions: drink plenty of fluids. follow up with your doctor as soon as possible return to the ER if symptoms worsen Print Language: ARMENIAN - Post Discharge Activity Forms/Work/School Notes: Back to Work
[2017-12-15] MEDS ORDERED: METOCLOPRAMIDE HCL INJECTION 10 MG/2 ML VIAL ONE (04:13)
[2017-12-15 04:44] LABS: BASO % 0.9 % (0-2.0); EOS % 1.7 % (0-4.5); HEMOGLOBIN 13.1 GM/dL (10.7-15.3); LYMPH % 24.3 % (8-40); MCHC 33.7 g/dl (32.0-36.0); MEAN PLT VOLUME 9.1 fl (7.5-11.1); MONO % 8.8 % (3.8-10.2); NEUT % 64.3 % (42.8-82.8); PLATELET COUNT 251 K/MM3 (134-434); RBC 4.24 M/mm3 (3.60-5.2); RDW 13.5 % (11.6-15.6); WHITE BLOOD COUNT 6.3 K/mm3 (4.0-10.0)
[2017-12-15 05:00] LABS: INR 0.99 (0.82-1.09); PROTHROMBIN TIME (PATIENT) 11.2 SEC (9.7-13.0)
[2017-12-15 05:09] LABS: ALBUMIN 4.2 g/dl (3.4-5.0); ALK PHOS 73 U/L (45-117); ANION GAP 7 (8-16); BILIRUBIN,TOTAL 0.6 mg/dL (0.2-1.0); BLOOD UREA NITROGEN 10 mg/dL (7-18); CALCIUM 8.9 mg/dL (8.5-10.1); CHLORIDE 105 mmol/L (98-107); CO2 28 mmol/L (21-32); CREATININE 0.7 mg/dL (0.55-1.02); GLUCOSE,RANDOM 83 mg/dL (74-106); SGPT/ALT 29 U/L (12-78); SODIUM 140 mmol/L (136-145); TOT PROT 7.8 g/dl (6.4-8.2)
[2017-12-15 05:12] LABS: SGOT/AST 21 U/L (15-37)
[2017-12-15] MEDS ORDERED: KETOROLAC TROMETHAMINE 30 MG/1 ML VIAL IVPUSH ONE (05:28)
[2017-12-15] MEDS ORDERED: KETOROLAC TROMETHAMINE 30 MG/1 ML VIAL ONE (05:54)
== END 2017-12-15 07:00 | disposition home or self-care (01) ==
LOC: JER 02:58
PROC: 3E033GC Introduction of Other Therapeutic Substance into Peripheral Vein, Percutaneous Approach (ICD-10-PCS; principal; 2017-12-15)
PROC: 3E0337Z Introduction of Electrolytic and Water Balance Substance into Peripheral Vein, Percutaneous Approach (ICD-10-PCS; 2017-12-15)
PROC: 3E0333Z Introduction of Anti-inflammatory into Peripheral Vein, Percutaneous Approach (ICD-10-PCS; 2017-12-15)
DX: G43.909 Migraine, unspecified, not intractable, without status migrainosus (principal)
CPT/HCPCS: 36415; 80053; 84703; 85025; 85610; 99282-25; J7030

== ENCOUNTER 2018-07-19 08:13 | Emergency (ER) | payer OTHER ==
[2018-07-19 08:19] VITALS: BP 144/88; PULSE 74; TEMP 98.1; BMI 23.8
[2018-07-19] MEDS ORDERED: IBUPROFEN 400 MG TABLET (FP) PO ONE ×2 (09:02→09:10)
--- NOTE | 2018-07-19 09:02 | PDOC ---
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 Patient reported midsternal chest pain since yesterday which is localized to middle of chest. Patient denies shortness of breath, dizziness, nausea or vomiting, numbness or tingling sensation or sweats. Patient denies any other symptoms 07/19/18 09:11 Timing/Duration: 24 hours Past History - Past Medical History Allergies/Adverse Reactions: Allergies Allergy/AdvReac Type Severity Reaction Status Date / Time No Known Allergies Allergy Verified 07/19/18 08:19 Home Medications: Ambulatory Orders Benzonatate [Tessalon Pearls -] 100 mg PO TID PRN #21 capsule 07/19/18 Butalb/Acetaminophen/Caffeine [Fioricet 50-300-40 mg Capsule] 1 each PO Q6H PRN #12 capsule 07/19/18 Ipratropium [place] 2 spray NS BID PRN #1 spray 07/19/18 Loratadine 10 mg PO DAILY #10 capsule 07/19/18 Methylprednisolone [Medrol Dose Urbano] 4 mg PO ASDIR #21 tablet 07/19/18 COPD: No HTN: Yes Psychiatric Problems: Yes (DEPRESSION) - Suicide/Smoking/Psychosocial Hx Smoking History: Never smoked Have you smoked in the past 12 months: No Hx Alcohol Use: No Drug/Substance Use Hx: No Substance Use Type: None Review of Systems - Review of Systems Able to Perform ROS?: Yes Is the patient limited Tajik proficient: No Constitutional: No: Chills, Fever, Malaise, Weakness HEENTM: Yes: Symptoms Reported, See HPI, Nose Congestion, Throat Pain. No: Eye Pain, Blurred Vision, Tearing, Recent change in vision, Double Vision, Cataracts , Ear Pain, Ocular Prothesis, Ear Discharge, Nose Pain, Tinnitus, Nose Bleeding , Hearing Loss, Throat Swelling, Mouth Pain, Dental Problems, Difficulty Swallowing, Mouth Swelling, Other Respiratory: Yes: Symptoms reported, See HPI, Cough. No: Orthopnea, Shortness of Breath, SOB with Exertion, SOB at Rest, Stridor, Wheezing, Productive cough, Hemoptysis, Other Cardiac (ROS): Yes: Symptoms Reported, See HPI, Chest Pain (mid-sternum). No: Edema, Irregular Heart Rate, Lightheadedness, Palpitations, Syncope, Chest Tightness, Other ABD/GI: No: Nausea, Vomiting Musculoskeletal: Yes: Neck Pain (back of b/l side of neck) Neurological: Yes: Headache. No: Numbness, Paresthesia, Tingling, Dizziness All Other Systems: Reviewed and Negative *Physical Exam - Vital Signs Last Vital Signs Temp Pulse Resp BP Pulse Ox 98.1 F 74 14 144/88 98 07/19/18 08:16 07/19/18 08:16 07/19/18 08:16 07/19/18 08:16 07/19/18 08:16 - Physical Exam Comments: 07/19/18 09:12 GENERAL: Well developed, well nourished. Awake and alert. No acute distress. HEENT: No throat erythema. Normocephalic, atraumatic. PERRLA, EOMI. No conjunctival pallor. Sclera are non-icteric. Moist mucous membranes. Oropharynx is clear. NECK: Mild tenderness to bilateral paracervical muscle of neck from C2-C7. Full ROM. CARDIOVASCULAR: Reproducible mild tenderness to midsternum.Regular rate and rhythm. No murmurs, rubs, or gallops. Distal pulses are 2+ and symmetric. PULMONARY: No evidence of respiratory distress. Lungs clear to auscultation bilaterally. No wheezing, rales or rhonchi. ABDOMINAL: Soft. Non-tender. Non-distended. No rebound or guarding. No organomegaly. Normoactive bowel sounds. MUSCULOSKELETAL Normal range of motion at all joints. EXTREMITIES: No cyanosis. No clubbing. No edema. No calf tenderness. SKIN: Warm and dry. Normal capillary refill. No rashes. No jaundice. NEUROLOGICAL: Alert, awake, appropriate. Gait is normal without ataxia. PSYCHIATRIC: Cooperative. Good eye contact. Appropriate mood General Appearance: Yes: Nourished, Appropriately Dressed. No: Apparent Distress Moderate Sedation - Procedure Monitoring Vital Signs: Procedure Monitoring Vital Signs Temperature 98.1 F 07/19/18 08:16 Pulse Rate 74 07/19/18 08:16 Respiratory Rate 14 01/15/19 08:16 Blood Pressure 144/88 07/19/18 08:16 O2 Sat by Pulse Oximetry (%) 98 07/19/18 08:16 ED Treatment Course - LABORATORY CBC & Chemistry Diagram: 07/19/18 09:20 07/19/18 09:20 Medical Decision Making - Medical Decision Making 07/19/18 09:13 Patient with no significant past medical history present with complaint of cough , midsternal chest pain, posterior neck pains, headache, sore throat and nasal congestion. Exam significant for mild tenderness to bilateral sides of neck on posterior side. Reproducible mild tenderness to midsternum otherwise unremarkable exam. Symptoms likely neck strain causing headache and costochondritis from coughing. EKG shows normal sinus rhythm. Rapid strep tests ordered. Chest x-ray ordered to rule out any acute chest pathology. Treat based on lab and imaging results. Motrin 800mg PO ordered for pain 07/19/18 10:21 Chest x-ray normal. Labs done shows no acute pathology. Patient is stable for discharge on outpatient treatment with Medrol Urbano and Tessalon Perles for cough with nasal spray for nasal congestion and neurology follow-up as needed for headache. Patient headaches likely from sinusitis and chest pain for costochondritis from coughing. Patient in no acute distress is stable for discharge. *DC/Admit/Observation/Transfer Diagnosis at time of Disposition: Cough, Costochondral chest pain Headache Qualifiers: Headache type: tension-type Headache chronicity pattern: episodic headache Intractability: not intractable Qualified Code(s): G44.219 - Episodic tension- type headache, not intractable URI (upper respiratory infection) Qualifiers: URI type: unspecified URI Qualified Code(s): J06.9 - Acute upper respiratory infection, unspecified - Discharge Dispostion Disposition: HOME Condition at time of disposition: Stable Decision to Admit order: No - Prescriptions Prescriptions: Benzonatate [Tessalon Pearls -] 100 mg PO TID PRN #21 capsule PRN Reason: Cough Butalb/Acetaminophen/Caffeine [Fioricet 50-300-40 mg Capsule] 1 each PO Q6H PRN #12 capsule PRN Reason: headache Ipratropium [place] 2 spray NS BID PRN #1 spray PRN Reason: nasal congestion Loratadine 10 mg PO DAILY #10 capsule Methylprednisolone [Medrol Dose Urbano] 4 mg PO ASDIR #21 tablet - Referrals Referrals: Juan Gordon MD [Staff Physician] - - Patient Instructions Printed Discharge Instructions: DI for Costochondritis, DI for Headache Additional Instructions: Your x-ray and lab was negative. Take medications as prescribed. Follow-up referred neurology if negative persist for more than 3 days otherwise follow-up with primary care. Print Language: DJIBOUTIAN - Post Discharge Activity
[2018-07-19 09:52] LABS: BASO % 0.3 % (0-2.0); EOS % 0.2 % (0-4.5); HEMOGLOBIN 14.2 GM/dL (10.7-15.3); LYMPH % 9.5 % (8-40); MCH 31.2 pg (25.7-33.7); MCHC 34.5 g/dl (32.0-36.0); MEAN CELL VOLUME 90.5 fl (80-96); MEAN PLT VOLUME 9.3 fl (7.5-11.1); PLATELET COUNT 278 K/MM3 (134-434); RBC 4.53 M/mm3 (3.60-5.2); RDW 13.8 % (11.6-15.6); WHITE BLOOD COUNT 10.8 K/mm3 (4.0-10.0)
[2018-07-19 10:08] LABS: ANION GAP 6 MMOL/L (8-16); BLOOD UREA NITROGEN 8 mg/dL (7-18); CALCIUM 9.3 mg/dL (8.5-10.1); CHLORIDE 105 mmol/L (98-107); CO2 27 mmol/L (21-32); CREATININE 0.7 mg/dL (0.55-1.3); GLUCOSE,RANDOM 98 mg/dL (74-106); POTASSIUM 3.9 mmol/L (3.5-5.1); SODIUM 138 mmol/L (136-145)
--- NOTE | 2018-07-19 18:11 | EKG ---
Test Reason : Blood Pressure : / mmHG Vent. Rate : 079 BPM Atrial Rate : 079 BPM P-R Int : 148 ms QRS Dur : 084 ms QT Int : 394 ms P-R-T Axes : 055 033 048 degrees QTc Int : 451 ms NORMAL SINUS RHYTHM WITH SINUS ARRHYTHMIA POSSIBLE LEFT ATRIAL ENLARGEMENT BORDERLINE ECG NO PREVIOUS ECGS AVAILABLE Confirmed by MD MARIUSZ, TEDDY ([id number]) on 07/19/2018 6:11:06 PM Referred By: Confirmed By:TEDDY VEE MD
== END 2018-07-19 10:25 | disposition home or self-care (01) ==
LOC: JER 08:13 → JERFT 08:13
DX: J06.9 Acute upper respiratory infection, unspecified (principal); G44.219 Episodic tension-type headache, not intractable; M94.0 Chondrocostal junction syndrome [Tietze]; I10 Essential (primary) hypertension; F32.9 Major depressive disorder, single episode, unspecified
CPT/HCPCS: 36415; 71046-TC-FY; 80048; 85025; 87070; 87804; 87880; 93005; 93010; 99281-25

== ENCOUNTER 2018-08-29 18:18 | Emergency (ER) | payer OTHER ==
[2018-08-29 18:28] VITALS: BP 146/92; PULSE 74; TEMP 98.4; BMI 24.0
--- NOTE | 2018-08-29 18:28 | PDOC ---
Rapid Medical Evaluation Chief Complaint: Vaginal Sxs Time Seen by Provider: 08/29/18 18:26 Medical Evaluation: Allergies Allergy/AdvReac Type Severity Reaction Status Date / Time No Known Allergies Allergy Verified 07/19/18 08:19 08/29/18 18:26 I have performed a brief in-person evaluation of this patient. The patient presents with a chief complaint of: painful urination x 4 days and pain with intercourse. Denies flank pain, fever, chills or vaginal discharge Pertinent physical exam findings: NAD even and unlabored breathing non tender abdomen I have ordered the following: urine preg, urinalysis The patient will proceed to the ED for further evaluation. Discharge Disposition - Diagnosis Dysuria - Discharge Dispostion Condition at time of disposition: Stable - Referrals - Patient Instructions - Post Discharge Activity
--- NOTE | 2018-08-29 19:01 | PDOC ---
History of Present Illness - General Chief Complaint: Vaginal Sxs Stated Complaint: VAGINAL PAIN FOR TWO DAYS Time Seen by Provider: 08/29/18 18:26 History Source: Patient Exam Limitations: No Limitations - History of Present Illness Travel History: No Initial Comments: 08/29/18 19:13 Patient came for evaluation of frequent urination, burning with void and mild suprapubic and flank pain. States started approximately 4 days ago and is progressively worsen. States has some vaginal drainage also has not fell smelling. Partner is without symptoms Timing/Duration: reports: getting worse, changing over time, intermittent Quality: reports: mild, moderate Abdominal Pain Onset Location: reports: suprapubic, flank Alleviating Factors: improves with: None Past History - Travel Traveled outside of the country in the last 30 days: No Close contact w/someone who was outside of country & ill: No - Past Medical History Allergies/Adverse Reactions: Allergies Allergy/AdvReac Type Severity Reaction Status Date / Time No Known Allergies Allergy Verified 07/19/18 08:19 Home Medications: Ambulatory Orders Fluconazole [Diflucan] 150 mg PO ONCE #1 tablet 08/29/18 COPD: No HTN: Yes Psychiatric Problems: Yes (DEPRESSION) - Suicide/Smoking/Psychosocial Hx Smoking History: Never smoked Have you smoked in the past 12 months: No Information on smoking cessation initiated: No Hx Alcohol Use: No Drug/Substance Use Hx: No Substance Use Type: None Review of Systems - Review of Systems Able to Perform ROS?: Yes Is the patient limited Niuean proficient: Yes Constitutional: Yes: See HPI, Malaise. No: Symptoms Reported, Chills, Fever HEENTM: No: Symptoms Reported Respiratory: No: Symptoms reported ABD/GI: Yes: Symptoms Reported : Yes: Symptoms Reported, See HPI, Burning, Dysuria Integumentary: Yes: Symptoms Reported, See HPI Neurological: No: Symptoms reported All Other Systems: Reviewed and Negative *Physical Exam - Vital Signs Last Vital Signs Temp Pulse Resp BP Pulse Ox 98.4 F 74 18 146/92 99 08/29/18 18:25 08/29/18 18:25 08/29/18 18:25 08/29/18 18:25 08/29/18 18:25 - Physical Exam General Appearance: Yes: Nourished, Appropriately Dressed, Apparent Distress, Mild Distress HEENT: positive: EOMI, KAYLIE, TMs Normal, Pharynx Normal Neck: positive: Supple. negative: Tender Respiratory/Chest: positive: Lungs Clear, Normal Breath Sounds. negative: Chest Tender Female Pelvic Exam: positive: normal external exam (scant amount of thick whitish drainage consistent with appearance of candidiasis), cervical os closed , normal adnexa (no drainage, no tenderness, no CMT. Ovaries nontender, no masses palpated.) Gastrointestinal/Abdominal: positive: Normal Bowel Sounds, Soft. negative: Tender (no rebound or guarding), Distended, Guarding, Rebound Musculoskeletal: positive: Normal Inspection. 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 specialist II-XII NML intact, Fully Oriented, Alert, Normal Mood/ Affect, Normal Response, Motor Strength 5/5 Moderate Sedation - Procedure Monitoring Vital Signs: Procedure Monitoring Vital Signs Temperature 98.4 F 08/29/18 18:25 Pulse Rate 74 08/29/18 18:25 Respiratory Rate 18 08/29/18 18:25 Blood Pressure 146/92 08/29/18 18:25 O2 Sat by Pulse Oximetry (%) 99 08/29/18 18:25 *DC/Admit/Observation/Transfer Diagnosis at time of Disposition: Dysuria, Vaginal candidiasis - Discharge Dispostion Disposition: HOME Condition at time of disposition: Stable Decision to Admit order: No - Referrals Referrals: Dane Hancock [Primary Care Provider] - Taisha Molina MD [Staff Physician] - - Patient Instructions Printed Discharge Instructions: DI for Vaginal Itching Additional Instructions: Rest, drink lots of fluids: Teas, water, soups Avoid contact with others until fevers and symptoms resolved Lots of handwashing and good hygiene Continue [id number] medications for symptomatic relief Tylenol or Motrin for fever and pain Diflucan 150 mg tablet to treat vaginal yeast infection Call for appointment with [facility] [employer] doctor next week for reevaluation Return to emergency department for worsened symptoms, fevers, dehydration - Post Discharge Activity Forms/Work/School Notes: Back to Work
[2018-08-29 19:19] LABS: URINE APPEARANCE CLEAR; URINE BILIRUBIN NEGATIVE (<2.0 mg/dL); URINE COLOR LTYELLOW; URINE GLUCOSE (UA) NEGATIVE (NEGATIVE); URINE KETONE NEGATIVE (NEGATIVE); URINE LEUK ESTERASE NEGATIVE (NEGATIVE); URINE NITRITE NEGATIVE (NEGATIVE); URINE PROTEIN NEGATIVE (NEGATIVE); URINE UROBILINOGEN NEGATIVE mg/dL (0.2-1.0)
[2018-08-29 19:21] LABS: HCG,QUALITATIVE URINE Negative
== END 2018-08-29 19:52 | disposition home or self-care (01) ==
LOC: JERFT 18:18
DX: B37.3 Candidiasis of vulva and vagina (principal)
CPT/HCPCS: 36415; 81003; 84703; 87491; 87591; 99281-25

== ENCOUNTER 2018-09-16 18:35 | Emergency (ER) | payer OTHER ==
[2018-09-16 18:55] VITALS: BP 150/94; PULSE 74; TEMP 98.1; BMI 24.0
--- NOTE | 2018-09-16 18:55 | PDOC ---
Rapid Medical Evaluation Chief Complaint: Blood Pressure Problem Time Seen by Provider: 09/16/18 18:53 Medical Evaluation: Allergies Allergy/AdvReac Type Severity Reaction Status Date / Time No Known Allergies Allergy Verified 09/16/18 18:53 09/16/18 18:53 I performed a brief in-person evaluation of this patient. Chief complaint: Headache and HTN x 10 days, unrelieved by ibuprofen Pertinent physical exam findings: No focal neurologic deficits, BP 150/94 I have ordered the following: Basic labs Patient to proceed to the ED for further evaluation. Discharge Disposition - Diagnosis Headache - Referrals - Patient Instructions - Post Discharge Activity
[2018-09-16 19:24] LABS: BASO % 0.5 % (0-2.0); EOS % 1.3 % (0-4.5); HEMOGLOBIN 12.9 GM/dL (10.7-15.3); LYMPH % 25.8 % (8-40); MCH 32.1 pg (25.7-33.7); MCHC 34.8 g/dl (32.0-36.0); MEAN CELL VOLUME 92.2 fl (80-96); MEAN PLT VOLUME 8.7 fl (7.5-11.1); MONO % 11.2 % (3.8-10.2); NEUT % 61.2 % (42.8-82.8); PLATELET COUNT 273 K/MM3 (134-434); RBC 4.02 M/mm3 (3.60-5.2); RDW 13.8 % (11.6-15.6); WHITE BLOOD COUNT 7.2 K/mm3 (4.0-10.0)
[2018-09-16 19:45] LABS: URINE APPEARANCE CLEAR; URINE BILIRUBIN NEGATIVE (<2.0 mg/dL); URINE COLOR COLORLESS; URINE GLUCOSE (UA) NEGATIVE (NEGATIVE); URINE KETONE NEGATIVE (NEGATIVE); URINE LEUK ESTERASE NEGATIVE (NEGATIVE); URINE NITRITE NEGATIVE (NEGATIVE); URINE PROTEIN NEGATIVE (NEGATIVE); URINE UROBILINOGEN NEGATIVE mg/dL (0.2-1.0)
[2018-09-16 19:46] LABS: HCG,QUALITATIVE URINE Negative
[2018-09-16 20:15] LABS: ANION GAP 7 MMOL/L (8-16); BLOOD UREA NITROGEN 11 mg/dL (7-18); CALCIUM 8.6 mg/dL (8.5-10.1); CHLORIDE 104 mmol/L (98-107); CO2 29 mmol/L (21-32); CREATININE 0.8 mg/dL (0.55-1.3); GLUCOSE,RANDOM 94 mg/dL (74-106); POTASSIUM 3.6 mmol/L (3.5-5.1); SODIUM 139 mmol/L (136-145)
--- NOTE | 2018-09-16 20:44 | PDOC ---
History of Present Illness - General Chief Complaint: Blood Pressure Problem Stated Complaint: HYPERTENSION/HEADACHE Time Seen by Provider: 09/16/18 18:53 History Source: Patient Exam Limitations: Language Barrier (Bike HUD promotion writer service used for this encounter) - History of Present Illness Initial Comments: 09/16/18 21:35 43-year-old female complaining of headache and blood pressure reading higher than normal for the last 10 days. Patient was seen at [facility] and was given medication to lower the blood pressure. Patient reports that the for the past couple of nights she's been having difficulty sleeping due to the headache. Patient denies this being the worse headache of her life. Denies nausea, vomiting, chest pain, dizziness, abdominal pain. Past History - Past Medical History Allergies/Adverse Reactions: Allergies Allergy/AdvReac Type Severity Reaction Status Date / Time No Known Allergies Allergy Verified 09/16/18 18:53 Home Medications: Ambulatory Orders NK [No Known Home Medication] 09/16/18 COPD: No HTN: Yes Psychiatric Problems: Yes (DEPRESSION) - Suicide/Smoking/Psychosocial Hx Smoking History: Never smoked Have you smoked in the past 12 months: No Information on smoking cessation initiated: No Hx Alcohol Use: No Drug/Substance Use Hx: No Substance Use Type: None Review of Systems - Review of Systems Able to Perform ROS?: Yes Is the patient limited Bangladeshi proficient: No Constitutional: No: Symptoms Reported, See HPI, Chills, Diaphoresis, Fever, Loss of Appetite, Malaise, Night Sweats, Weakness, Weight Stable, Unintentional Wgt. Loss, Unexplained wgt Loss, Other Respiratory: No: Symptoms reported, See HPI, Cough, Orthopnea, Shortness of Breath, SOB with Exertion, SOB at Rest, Stridor, Wheezing, Productive cough, Hemoptysis, Other Cardiac (ROS): No: Symptoms Reported, See HPI, Chest Pain, Edema, Irregular Heart Rate, Lightheadedness, Palpitations, Syncope, Chest Tightness, Other Neurological: Yes: Headache. No: Symptoms reported, See HPI, Numbness, Paresthesia, Pre-Existing Deficit, Seizure, Tingling, Tremors, Weakness, Unsteady Gait, Ataxia, Dizziness, Other Psychiatric: Yes: Sleep Pattern Change. No: Anxiety, Depression, Frequent Crying, Stressors, Emotional Problems, Mood Swings, Change in Appetite, Other *Physical Exam - Vital Signs Last Vital Signs Temp Pulse Resp BP Pulse Ox 98.1 F 74 16 150/94 100 09/16/18 18:53 09/16/18 18:53 09/16/18 18:53 09/16/18 18:53 09/16/18 18:53 - Physical Exam General Appearance: Yes: Appropriately Dressed Respiratory/Chest: positive: Lungs Clear, Normal Breath Sounds. negative: Chest Tender Cardiovascular: positive: Regular Rhythm, Regular Rate Gastrointestinal/Abdominal: positive: Normal Bowel Sounds, Soft. 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: mobile lounge driver II-XII NML intact, Fully Oriented, Alert, Normal Mood/ Affect, Normal Response, Motor Strength 5/5 Moderate Sedation - Procedure Monitoring Vital Signs: Procedure Monitoring Vital Signs Temperature 98.1 F 09/16/18 18:53 Pulse Rate 74 09/16/18 18:53 Respiratory Rate 16 09/16/18 18:53 Blood Pressure 150/94 09/16/18 18:53 O2 Sat by Pulse Oximetry (%) 100 09/16/18 18:53 ED Treatment Course - LABORATORY CBC & Chemistry Diagram: 09/16/18 19:10 09/16/18 19:09 - ADDITIONAL ORDERS Additional order review: Laboratory Results 09/16/18 09/16/18 19:23 19:09 Sodium 139 Potassium 3.6 Chloride 104 Carbon Dioxide 29 Anion Gap 7 L BUN 11 Creatinine 0.8 Creat Clearance w eGFR 78.66 Random Glucose 94 Calcium 8.6 Urine Color Colorless Urine Appearance Clear Urine pH 6.0 Ur Specific [place] 1.004 L Urine Protein Negative Urine Glucose (UA) Negative Urine Ketones Negative Urine Blood Negative Urine Nitrite Negative Urine Bilirubin Negative Urine Urobilinogen Negative Ur Leukocyte Esterase Negative Urine HCG, Qual Negative 09/16/18 19:10 RBC 4.02 MCV 92.2 MCHC 34.8 RDW 13.8 MPV 8.7 Neutrophils % 61.2 D Lymphocytes % 25.8 D Monocytes % 11.2 H D Eosinophils % 1.3 D Basophils % 0.5 Medical Decision Making - Medical Decision Making 09/16/18 21:36 Headache; hypertension P: labs Tylenol patient to follow up with PCP for b/p management since medication hasn't been adjusted for many years, patient is scheduled for PCP appoitnment in 2 days. strict return precautions reviewed with patient *DC/Admit/Observation/Transfer Diagnosis at time of Disposition: Headache Qualifiers: Headache type: unspecified Headache chronicity pattern: chronic headache Intractability: not intractable Qualified Code(s): R51 - Headache Hypertension Qualifiers: Hypertension type: essential hypertension Qualified Code(s): I10 - Essential ( primary) hypertension - Discharge Dispostion Disposition: HOME - Referrals Referrals: Dane Hancock [Primary Care Provider] - 3 days - Patient Instructions Printed Discharge Instructions: How to Monitor Your Blood Pressure at Home Additional Instructions: follow up with your doctor as soon as possible. take Tylenol every 6 hours as needed for pain return immediately to the emergency room if symptoms worsen. - Post Discharge Activity Forms/Work/School Notes: Back to Work
[2018-09-16] MEDS ORDERED: ACETAMINOPHEN 500 MG TABLET (FP) PO ONE (21:05)
== END 2018-09-16 21:43 | disposition home or self-care (01) ==
LOC: JERFT 18:35
DX: I10 Essential (primary) hypertension (principal); R51 Headache; F32.9 Major depressive disorder, single episode, unspecified
CPT/HCPCS: 36415; 80048; 81003; 84703; 85025; 99281-25

== ENCOUNTER 2019-06-11 10:06 | Emergency (ER) | payer OTHER ==
[2019-06-11 10:16] VITALS: PULSE 83; BMI 25.7
--- NOTE | 2019-06-11 11:37 | PDOC ---
History of Present Illness - General Chief Complaint: Pain Stated Complaint: BURNING SENSATION IN FINGERS Time Seen by Provider: 06/11/19 11:05 - History of Present Illness Initial Comments: Ms. Anibal Ndiaye is a 44 y/o female with PMH significant for HTN, presenting with burning and pain at the tips of her fingers. Reports that this pain has been going on for the past month. Reports that the pain is constant and has only improved once a few days ago. Reports that the pain is only on the distal tips of her fingers and that the pain is in all 10 fingers equally. Denies pain in the proximal fingers, hands, wrists, or forearms. Denies pain radiation or pain originating in the more proximal upper extremity. Reports that she has a hx of migraine headaches, but has not had one for several months. Denies injury to fingers or fall. 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 Denies pain radiation. Past History - Past Medical History Allergies/Adverse Reactions: Allergies Allergy/AdvReac Type Severity Reaction Status Date / Time No Known Allergies Allergy Verified 06/11/19 10:16 Home Medications: Ambulatory Orders Metoprolol Tartrate [Lopressor -] 12.5 mg PO DAILY 06/11/19 COPD: No HTN: Yes Psychiatric Problems: Yes (DEPRESSION) - Psycho Social/Smoking Cessation Hx Smoking History: Never smoked Have you smoked in the past 12 months: No Information on smoking cessation initiated: No Hx Alcohol Use: No Drug/Substance Use Hx: No Substance Use Type: None Review of Systems - Review of Systems Comments:: GENERAL/CONSTITUTIONAL: No fever or chills. No weakness._ HEAD, EYES, EARS, NOSE AND THROAT: No change in vision. No change in hearing. No sore throat._ CARDIOVASCULAR: No chest pain or shortness of breath_ RESPIRATORY: Denies cough, hemoptysis_ GASTROINTESTINAL: No nausea, vomiting, diarrhea or constipation._ GENITOURINARY: No dysuria, frequency, or change in urination._ MUSCULOSKELETAL: Reports pain in all 10 distal fingers. Denies swelling or redness. No neck or back pain._ SKIN: No rash_ NEUROLOGIC: No headache, vertigo, loss of consciousness, or change in strength/ sensation._ HEMATOLOGIC/LYMPHATIC: No anemia, easy bleeding, or history of blood clots._ ALLERGIC/IMMUNOLOGIC: No hives or skin allergy._ *Physical Exam - Vital Signs Last Vital Signs Temp Pulse Resp BP Pulse Ox 97 F L 83 18 167/95 100 06/11/19 10:12 06/11/19 10:12 06/11/19 10:12 06/11/19 10:12 06/11/19 10:12 - Physical Exam GENERAL: Awake, alert, and oriented to person/place/time, in no acute distress_ HEAD: No signs of trauma, normocephalic, atraumatic _ EYES: PERRLA, EOMI, sclera anicteric, conjunctiva clear_ ENT: Hearing grossly normal, nares patent, oropharynx clear without exudates. No uvular deviation. Moist mucosa_ NECK: Normal ROM, supple, no lymphadenopathy, JVD, or masses_ LUNGS: No distress, speaks in full sentences, clear to auscultation bilaterally _ HEART: Regular rate and rhythm, normal S1 and S2, no murmurs appreciated, peripheral pulses normal and equal bilaterally._ ABDOMEN: Soft, nontender, normoactive bowel sounds. No guarding, no rebound. No masses_ EXTREMITIES: TTP palpation on all 10 fingers. No swelling. No erythema. No bruising. Normal range of motion, no edema. No clubbing or cyanosis. 5/5 plate conditioner strength and finger abduction/thumb flexion and extension. 5/5 elbow flexion/ extension and shoulder flexion/extension. Tinel's sign negative. Phalen's maneuver negative. NEUROLOGICAL: Cranial nerves II through XII grossly intact. Normal speech, normal gait, no focal sensorimotor deficits _ SKIN: Warm, Dry, normal turgor, no rashes or lesions noted_ Medical Decision Making - Medical Decision Making 06/11/19 11:45 44F presenting with 1 month of distal finger pain, equal in all 10 digits. No focal neuro findings. Tinel's sign and Phalen's maneuver negative. Will give motrin in the ED for pain relief. Plan to d/c home, motrin for pain control, f/u PCP. Discharge - Discharge Information Problems reviewed: Yes Clinical Impression/Diagnosis: Finger pain Qualifiers: Laterality: bilateral Qualified Code(s): M79.645 - Pain in left finger(s) Condition: Stable Disposition: HOME - Admission No - Follow up/Referral Referrals: Dallin Bear MD [Staff Physician] - - Patient Discharge Instructions Additional Instructions: Please make a follow up appointment with a primary care doctor to follow up your finger pain (referral provided here). Please take Motrin as needed for pain in your fingers (follow instructions on the package). If you experience any new, worsening, or concerning symptoms, including weakness or numbness in the hands, arms, severe headache, or any other concerns , please return to the emergency department. Apolinar deandra gerardo de seguimiento con un mdico de atencin primaria para controlar schaefer dolor de dedo (se proporciona deandra referencia aqu). [place] Motrin segn sea necesario para el dolor en megha dedos (siga las instrucciones en el paquete). Si experimenta algn sntoma nuevo, que empeora o preocupa, que incluye debilidad o entumecimiento en las mo, brazos, dolor de lidya intenso o cualquier otra inquietud, regrese al departamento de emergencias. - Post Discharge Activity
[2019-06-11] MEDS ORDERED: IBUPROFEN 600 MG TABLET (FP) PO ONE ×2 (12:07→12:11)
[2019-06-11 12:12] VITALS: BP 147/76; TEMP 98
--- NOTE | 2019-06-11 12:59 | PDOC ---
Documentation entered by Laura Stout SCRIBE, acting as scribe for Maria Esther Montoya MD. Maria Esther Montoya MD: This documentation has been prepared by the jessye, Laura Stout SCRIBE, under my direction and personally reviewed by me in its entirety. I confirm that the documentation accurately reflects all work, treatment, procedures, and medical decision making performed by me. Attending Attestation - Resident Resident Name: Dat Lott - ED Attending Attestation I have performed the following: I have examined & evaluated the patient, The case was reviewed & discussed with the resident, I agree w/resident's findings & plan, Exceptions are as noted - HPI HPI: 06/11/19 12:08 The patient is a 44 year old female with significant past medical history of hypertension and migraines presenting to the ED with burning/pain sensation in the tips of her 10 fingers for 1 month. 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 Patient states she has equal constant pain in all of her distal fingers with no radiation or any other associated symptoms. She denies pain in the wrists, hands, proximal fingers, or forearms. Denies chest pain, sob, dizzines, headache. 06/11/19 12:12 - Physicial Exam PE: 06/11/19 12:09 NAD, well appearing, EOMI, PERRL, MMM, nl conjunctiva, anicteric; neck supple. lungs clear, RRR, abdomen soft nontender. Back nontender. REN x4, no focal neuro deficits. 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 SILT in median/ ulnar/radial nerve distribution. soft compartments. no bony tenderness, no crepitus. No peripheral edema. normal color for ethnicity, WWP. neg phalen's and tinel's testing. no wrist tenderness, no proximal extremity tenderness. no rash. mild TTP to distal pulp of all extremities, no skin discoloration. 06/11/19 12:54 - Medical Decision Making 06/11/19 12:56 Vital Signs Temp Pulse Resp BP Pulse Ox 98.0 F 83 18 147/76 99 06/11/19 12:11 06/11/19 12:11 06/11/19 12:11 06/11/19 12:11 06/11/19 12:11 vitals wnl. neuro vasc intact. no systemic findings, no s/s infection no trauma, doubt fx. no other symptoms. neuro intact no skin findings. no imaging or wrkup indicated, FROM in all extrem. ibuprofen here, PCP followup has had sx x 1 month, no acute triggers.
== END 2019-06-11 12:19 | disposition home or self-care (01) ==
LOC: JER 10:06
DX: M79.645 Pain in left finger(s) (principal); I10 Essential (primary) hypertension; F32.9 Major depressive disorder, single episode, unspecified
CPT/HCPCS: 99281-25

== ENCOUNTER 2019-06-23 17:46 | Observation (INO) | payer OTHER ==
--- NOTE | 2019-06-23 18:01 | PDOC ---
Rapid Medical Evaluation Time Seen by Provider: 06/23/19 17:58 Medical Evaluation: Allergies Allergy/AdvReac Type Severity Reaction Status Date / Time No Known Allergies Allergy Verified 06/11/19 10:16 06/23/19 17:58 Pt c/o: dizziness worse with movement, none at rest x 3 days, no hx of the same , no ear pain, no dental problems, no injury, hx htn but does not take lopressor routinely Pt on brief exam: 183/89, perrl, ambulatory Pt ordered for: cbc, comp, ekg, head ct, urine Pt to proceed to the ED Discharge Disposition - Diagnosis Dizziness - Referrals - Patient Instructions - Post Discharge Activity
[2019-06-23 18:35] LABS: BASO % 0.6 % (0-2.0); HEMOGLOBIN 12.9 GM/dL (10.7-15.3); LYMPH % 25.4 % (8-40); MCHC 33.9 g/dl (32.0-36.0); MEAN CELL VOLUME 91.4 fl (80-96); MEAN PLT VOLUME 9.2 fl (7.5-11.1); MONO % 10.4 % (3.8-10.2); NEUT % 62.6 % (42.8-82.8); PLATELET COUNT 279 K/MM3 (134-434); RBC 4.15 M/mm3 (3.60-5.2); RDW 13.7 % (11.6-15.6); WHITE BLOOD COUNT 8.2 K/mm3 (4.0-10.0)
[2019-06-23 18:38] LABS: PH,URINE 7.5 (5.0-8.0); URINE APPEARANCE CLEAR; URINE BILIRUBIN NEGATIVE (NEGATIVE); URINE COLOR YELLOW; URINE GLUCOSE (UA) NEGATIVE (NEGATIVE); URINE KETONE NEGATIVE (NEGATIVE); URINE LEUK ESTERASE NEGATIVE (NEGATIVE); URINE NITRITE NEGATIVE (NEGATIVE); URINE PROTEIN NEGATIVE (NEGATIVE); URINE UROBILINOGEN 0.2 mg/dL (0.2-1.0)
[2019-06-23 19:09] LABS: ALBUMIN 4.1 g/dl (3.4-5.0); BILIRUBIN,TOTAL 0.5 mg/dL (0.2-1); BLOOD UREA NITROGEN 9.9 mg/dL (7-18); CALCIUM 8.9 mg/dL (8.5-10.1); CREATININE 0.6 mg/dL (0.55-1.3); POTASSIUM 3.8 mmol/L (3.5-5.1); TOT PROT 7.4 g/dl (6.4-8.2)
--- NOTE | 2019-06-23 19:25 | PDOC ---
History of Present Illness - General Chief Complaint: Lightheaded Stated Complaint: PAIN Time Seen by Provider: 06/23/19 17:58 - History of Present Illness Initial Comments: HPI: 44yo F with PMH of HTN, migraines presenting with weakness, dizziness, and syncope. Patient reports feeling three episodes of dizziness today, worsening when she moved her head. Yesterday at 3:30am, patient reports having two syncopal episodes witnessed by her . Her states she did not lose consciousness for a long time and she did not hit her head. No jerking/shaking motion or urinary/stool incontinence. Patient has had normal po intake. Her dose of metoprolol was lessened to 50mg from 100mg in March by her primary care physician and she has been adherent to her medications. No chest pain, shortness of breath, hemoptysis, no recent surgical history, no recent immobilization, no hormone use, no history of DVT or PE. Denies fever or chills. PCP: Dr. Dane Hancock History obtained with assistance from [employer] frit coater [id number] ROS: Constitutional: no fever, no chills HEENT: no throat pain, no dysphagia Cardiovascular: no chest pain, no palpitations Respiratory: no cough, no shortness of breath Gastrointestinal: no abdominal pain, no nausea Genitourinary: no dysuria, no hematuria Musculoskeletal: no myalgia, no arthralgia Skin: no rash, no itching Neurologic: +headache, no weakness PE: General: Awake, alert, and fully oriented, in no acute distress Head: No signs of trauma Eyes: EOMI, sclera anicteric ENT: Moist mucus membranes Neck: Normal ROM, supple Lungs: Lungs clear, Normal breath sounds Cardio: Regular rhythm, S1 and S2 present Abdomen: Soft, nontender. No guarding, no rebound, no masses Extremities: Normal range of motion, Distal pulses present SKIN: Warm, Dry, normal turgor Neurologic: Cranial nerves II through XII intact. Normal speech, sensation, strength, coordination, and gait. ED Course/MDM: DDX includes but not limited to vasovagal syncope, cardiogenic syncope, metabolic syncope, neurogenic syncope, postural syncope, seizure, PE Labs, EKG, CXR CT Head Tylenol for headache 06/23/19 19:53 CBC WBC 8.2 K/mm3 (4.0-10.0) 06/23/19 18:19 RBC 4.15 M/mm3 (3.60-5.2) 06/23/19 18:19 Hgb 12.9 GM/dL (10.7-15.3) 06/23/19 18:19 Hct 38.0 % (32.4-45.2) 06/23/19 18:19 MCV 91.4 fl (80-96) 06/23/19 18:19 MCH 31.0 pg (25.7-33.7) 06/23/19 18:19 MCHC 33.9 g/dl (32.0-36.0) 06/23/19 18:19 RDW 13.7 % (11.6-15.6) 06/23/19 18:19 Plt Count 279 K/MM3 (134-434) 06/23/19 18:19 MPV 9.2 fl (7.5-11.1) 06/23/19 18:19 Absolute Neuts (auto) 5.1 K/mm3 (1.5-8.0) 06/23/19 18:19 Neutrophils % 62.6 % (42.8-82.8) 06/23/19 18:19 Lymphocytes % 25.4 % (8-40) 06/23/19 18:19 Monocytes % 10.4 % (3.8-10.2) H 06/23/19 18:19 Eosinophils % 1.0 % (0-4.5) 06/23/19 18:19 Basophils % 0.6 % (0-2.0) 06/23/19 18:19 Nucleated RBC % 0 % (0-0) 06/23/19 18:19 No leukocytosis CMP Sodium 139 mmol/L (136-145) 06/23/19 18:19 Potassium 3.8 mmol/L (3.5-5.1) 06/23/19 18:19 Chloride 105 mmol/L (98-107) 06/23/19 18:19 Carbon Dioxide 30 mmol/L (21-32) 06/23/19 18:19 Anion Gap 5 MMOL/L (8-16) L 06/23/19 18:19 BUN 9.9 mg/dL (7-18) 06/23/19 18:19 Creatinine 0.6 mg/dL (0.55-1.3) 06/23/19 18:19 Est GFR (CKD-EPI)AfAm 129.39 06/23/19 18:19 Est GFR (CKD-EPI)NonAf 111.64 06/23/19 18:19 Random Glucose 66 mg/dL (74-106) L 06/23/19 18:19 Calcium 8.9 mg/dL (8.5-10.1) 06/23/19 18:19 Total Bilirubin 0.5 mg/dL (0.2-1) 06/23/19 18:19 AST 16 U/L (15-37) 06/23/19 18:19 ALT 24 U/L (13-61) 06/23/19 18:19 Alkaline Phosphatase 79 U/L (45-117) 06/23/19 18:19 Total Protein 7.4 g/dl (6.4-8.2) 06/23/19 18:19 Albumin 4.1 g/dl (3.4-5.0) 06/23/19 18:19 Electrolytes unremarkable Normal Cr No transaminitis UA negative for infection Pending CT head report 06/23/19 22:02 CT head as read by imaging operational risk manager: "FINDINGS: Parenchyma: No acute intracranial hemorrhage or mass effect. No hypodensity. Extra-axial collection: No extra-axial fluid collection or hemorrhage. Ventricles and cisterns: Normal and symmetric in size and shape. No SAH. Paranasal sinuses: Visualized portions are unremarkable. Mastoid air cells: Unremarkable. Orbits: Visualized portions are unremarkable. Calvarium: No acute fracture. IMPRESSION: No evidence of acute intracranial abnormality." CXR without acute pathology, my impression 06/23/19 22:30 EKG: rate 61, QTc 455, NSR [employer] sent 06/23/19 22:[address] Dimitry Mcfarlane who accepted patient for telemetry observation under Dr. Zhu 06/23/19 23:49 Past History - Past Medical History Allergies/Adverse Reactions: Allergies Allergy/AdvReac Type Severity Reaction Status Date / Time No Known Allergies Allergy Verified 06/11/19 10:16 Home Medications: Ambulatory Orders Metoprolol Succinate [Toprol Xl] 100 mg PO DAILY 06/23/19 COPD: No HTN: Yes Psychiatric Problems: Yes (DEPRESSION) - Psycho Social/Smoking Cessation Hx Smoking History: Never smoked Have you smoked in the past 12 months: No Hx Alcohol Use: No Drug/Substance Use Hx: No Substance Use Type: None *Physical Exam - Vital Signs Last Vital Signs Temp Pulse Resp BP Pulse Ox 97.9 F 72 18 183/89 H 100 06/23/19 18:02 06/23/19 18:02 06/23/19 18:02 06/23/19 18:02 06/23/19 18:02 ED Treatment Course - LABORATORY CBC & Chemistry Diagram: 06/23/19 18:19 06/23/19 18:19 - ADDITIONAL ORDERS Additional order review: Laboratory Results 06/23/19 06/23/19 06/23/19 18:19 18:19 18:19 Sodium 139 Potassium 3.8 Chloride 105 Carbon Dioxide 30 Anion Gap 5 L BUN 9.9 Creatinine 0.6 Est GFR (CKD-EPI)AfAm 129.39 Est GFR (CKD-EPI)NonAf 111.64 Random Glucose 66 L Calcium 8.9 Total Bilirubin 0.5 AST 16 ALT 24 Alkaline Phosphatase 79 Total Protein 7.4 Albumin 4.1 Urine Color Yellow Urine Appearance Clear Urine pH 7.5 D Ur Specific [place] 1.005 L Urine Protein Negative Urine Glucose (UA) Negative Urine Ketones Negative Urine Blood Negative Urine Nitrite Negative Urine Bilirubin Negative Urine Urobilinogen 0.2 Ur Leukocyte Esterase Negative Urine HCG, Qual Negative 06/23/19 18:19 RBC 4.15 MCV 91.4 MCHC 33.9 RDW 13.7 MPV 9.2 Neutrophils % 62.6 Lymphocytes % 25.4 Monocytes % 10.4 H Eosinophils % 1.0 Basophils % 0.6 Discharge - Discharge Information Problems reviewed: Yes Clinical Impression/Diagnosis: Dizziness Syncope Qualifiers: Syncope type: unspecified Qualified Code(s): R55 - Syncope and collapse Condition: Guarded - Admission Yes - Follow up/Referral Referrals: Dane Hancock [Primary Care Provider] - - Patient Discharge Instructions - Post Discharge Activity
[2019-06-23] MEDS ORDERED: VALSARTAN 40 MG TABLET (FP) PO ONE (20:27)
[2019-06-23] MEDS ORDERED: NITROGLYCERIN SUBLINGUAL 1/150 0.4 MG TAB SL ONE (20:28)
[2019-06-23] MEDS ORDERED: NITROGLYCERIN SUBLINGUAL 1/150 0.4 MG TAB ONE (20:33)
[2019-06-23] MEDS ORDERED: VALSARTAN 80 MG TABLET (UD) ONE (20:34)
--- NOTE | 2019-06-23 21:36 | PDOC ---
Attending Attestation - Resident Resident Name: Angela Gerard - ED Attending Attestation I have performed the following: I have examined & evaluated the patient, The case was reviewed & discussed with the resident, I agree w/resident's findings & plan - HPI HPI: 06/23/19 21:36 Pt has lightheadedness; labs are all WNL. She felt dizzy this AM when she got out of bed and she had a syncope; her was there. She had a syncope 2 x in the past. Last time was March. She has no history of HTN, but her mom was hypertensive at the age of 40s and her mom still has HTN, and mom is 70s at this time. Pt has . She has normal menses; last menses endes a couple weeks back, - Physicial Exam PE: 06/23/19 21:36 Agree with resident exam 06/24/19 00:17 Normal heart and lungs Abd soft NT ND lungs clear No flank pain No head injury and no bruises on body. - Medical Decision Making 06/23/19 22:47 Patient Name: SANDHU THIS IS A PRELIMINARY REPORT FROM [facility] DATE OF SERVICE: 2019-06-23 20:04:52 IMAGES: 221 EXAM: CT HEAD WITHOUT CONTRAST HISTORY: 44-year-old female, dizziness, headaches COMPARISON: No available comparison exams. TECHNIQUE: Axial non-contrast images of the head obtained from the skull base to the vertex. Radiation Dose Reduction: This CT exam was performed using one or more of the following dose reduction techniques: automated exposure control, adjustment of the mA and/or kV according to patient size, use of iterative reconstruction technique. Radiation Dose: Based on a 16 cm phantom, the estimated radiation dose CTDIvol mGy for each series in this exam is 23. The estimated cumulative dose (DLP mGy-cm) is 530. FINDINGS: Parenchyma: No acute intracranial hemorrhage or mass effect. No hypodensity. Extra-axial collection: No extra-axial fluid collection or hemorrhage. Ventricles and cisterns: Normal and symmetric in size and shape. No SAH. Paranasal sinuses: Visualized portions are unremarkable. Mastoid air cells: Unremarkable. Orbits: Visualized portions are unremarkable. Calvarium: No acute fracture. IMPRESSION: No evidence of acute intracranial abnormality. 06/24/19 23:02 Admitted to [facility]
[2019-06-23] MEDS ORDERED: ACETAMINOPHEN 325 MG TABLET (FP) PO ONE (21:55)
[2019-06-23] MEDS ORDERED: ACETAMINOPHEN 325 MG TABLET (FP) ONE (22:49)
--- NOTE | 2019-06-23 23:23 | PN ---
Teaching Attending Note Name of Resident: Parrish Mathew ATTENDING PHYSICIAN STATEMENT I saw and evaluated the patient. I reviewed the resident's note and discussed the case with the resident. I agree with the resident's findings and plan as documented. SUBJECTIVE: Patient is a 44 year old woman with a PMH of HTN and Migraines presenting with weakness, dizziness, and syncope. Patient reports feeling three episodes of dizziness today, worsening when she moved her head. Yesterday at 3:30am, patient reports having two syncopal episodes witnessed by her . Her states she did not lose consciousness for a long time and she did not hit her head. No jerking/shaking motion or urinary/stool incontinence. Patient has had normal oral intake. Her dose of metoprolol was reduced to 50 mg from 100 mg in March by her primary care physician and she has been adherent to her medications. No chest pain, shortness of breath, hemoptysis, recent surgery or immobilization. Denies hormone use, VTE, fever, chills, abdominal pain, dysuria, frequency, or diarrhea. Denies tobacco, alcohol or illicit drug use. OBJECTIVE: Alert and not orthostatic Vital Signs Period Temp Pulse Resp BP Sys/Bales Pulse Ox Last 24 Hr 97.9 F-98.0 F 62-72 14-18 158-183/68-101 99-100 HEENT: No Jaundice, eye redness or discharge, PERRLA, EOMI. Normocephalic, atraumatic. External ears are normal and hearing is grossly intact. No nasal discharge. Neck: Supple, nontender. No palpable adenopathy or thyromegaly. No JVD Chest: Good effort. Clear to auscultation and percussion. Heart: Regular. No S3, rub or murmur Abdomen: Not distended, soft, nontender and no HSM. No rebound or guarding. Normal bowel sounds. Ext: Peripheral pulses intact. No leg edema. Skin: Warm and dry. No petechiae, rash or ecchymosis. Neuro: Alert. Oriented x3. CN 2-12 grossly intact. Sensation grossly intact in all four extremities and DTR are symmetric. Psych: Appropriate mood and affect. Good insight. Home Medications Medication Instructions Recorded Metoprolol Succinate [Toprol Xl] 100 mg PO DAILY 06/23/19 Abnormal Lab Results 12/20/19 12/20/19 12/20/19 18:19 18:19 18:19 Monocytes % 10.4 H Anion Gap 5 L Random Glucose 66 L Ur Specific [place] 1.005 L ASSESSMENT AND PLAN: 1. Syncope - Etiology unclear. No acute abnormality on CXR or Head CT scan. EKG shows sinus bradycardia with rate of 54 and t wave inversion in V1-3. Initial troponin is negative. Will monitor on telemetry and repeat EKG. Will get urine toxicology, HbA1c, TSH, ECHO, carotid doppler, EEG and consult Neurology and cardiology. Implement fall and seizure precautions. Will continue comprehensive care for all of patients comorbid conditions. 2. Hypertension - Restart suitable outpatient antihypertensive drugs when clinically appropriate. Revise regimen to ensure [id number] excellent BP control and psychologist counseling patient on the injurious effects of uncontrolled hypertension. Nonpharmacologic measures to control hypertension like weight loss , salt restriction and exercise discussed. Importance of adherence to treatment regimen and attainment of normotension emphasized. 3. DVT prophylaxis - Lovenox 40 mg SQ q 24 hours. 4. Advance directives - Full code
[2019-06-24 01:36] VITALS: BMI 25.5
--- NOTE | 2019-06-24 05:35 | HP ---
CHIEF COMPLAINT: dizziness with spinning sensation PCP: Santi HISTORY OF PRESENT ILLNESS: 44F w/ pmh of HTN presenting to [facility] w/ complaint of persistent mild spinning sensation after synope. Resolved spinning upon my evaluation. At ~0300, had syncopal episode after urination. found pt on floor. Pt believes she had LOC for less than a minute. Denies prodromal CP, palpitations, SOB, BUTCHER, hitting head. After regaining consciousness had sensation of spinning room which resolved after sleeping. Went to work as [employer] and had continued spinning sensation which prompted her to present to the ED. Had similar episodes of spinning sensation in Mar 2019 but had no LOC. Pt did not get medical eval. [facility] [id number] ER course was notable for: (1) CTH --neg (2) CXR --norm (3) EKG --NSR (4) UA --neg nitr, neg LE (5) s/p valsartan, SL nitro, acetaminophen 975mg Recent Travel: PAST MEDICAL HISTORY: HTN PAST SURGICAL HISTORY: none Social History: Smoking: denies Alcohol: denies Drugs: denies Allergies No Known Allergies Allergy (Verified 06/11/19 10:16) HOME MEDICATIONS: Home Medications Medication Instructions Recorded Metoprolol Succinate [Toprol Xl] 100 mg PO DAILY 06/23/19 REVIEW OF SYSTEMS CONSTITUTIONAL: dizziness w/ spinning sensation Absent: fever, chills, diaphoresis, generalized weakness, malaise, loss of appetite, weight change HEENT: Absent: rhinorrhea, nasal congestion, throat pain, throat swelling, difficulty swallowing, mouth swelling, ear pain, eye pain, visual changes CARDIOVASCULAR: Absent: chest pain, syncope, palpitations, irregular heart rate, lightheadedness , peripheral edema RESPIRATORY: Absent: cough, shortness of breath, dyspnea with exertion, orthopnea, wheezing, stridor, hemoptysis GASTROINTESTINAL: Absent: abdominal pain, abdominal distension, nausea, vomiting, diarrhea, constipation, melena, hematochezia GENITOURINARY: Absent: dysuria, frequency, urgency, hesitancy, hematuria, flank pain, genital pain MUSCULOSKELETAL: Absent: myalgia, arthralgia, joint swelling, back pain, neck pain NEUROLOGIC: Absent: headache, focal weakness or paresthesias, dizziness, unsteady gait, seizure, mental status changes, bladder or bowel incontinence PHYSICAL EXAMINATION Vital Signs - 24 hr 06/23/19 06/23/19 06/23/19 18:02 20:00 20:38 Temperature 97.9 F Pulse Rate 72 Pulse Rate [ 63 68 Left Radial] Respiratory 18 18 18 Rate Blood Pressure 183/89 H Blood Pressure 171/87 H 176/101 H [Right Arm] O2 Sat by Pulse 100 99 Oximetry (%) 06/23/19 06/23/19 21:00 22:52 Temperature 98.0 F Pulse Rate Pulse Rate [ 62 Left Radial] Respiratory 14 Rate Blood Pressure Blood Pressure 158/68 [Right Arm] O2 Sat by Pulse 98 100 Oximetry (%) GENERAL: Awake, alert, and fully oriented, in no acute distress. Neg orthostatics HEAD: NC/AT EYES: Pupils equal, round and reactive to light, extraocular movements intact, sclera anicteric, conjunctiva clear. No lid lag. EARS, NOSE, THROAT: Ears normal, nares patent, oropharynx clear without exudates. Moist mucous membranes. NECK: Normal range of motion, supple without lymphadenopathy, JVD, or masses. LUNGS: Breath sounds equal, clear to auscultation bilaterally. No wheezes, and no crackles. No accessory muscle use. HEART: Regular rate and rhythm, normal S1 and S2 without murmur, rub or gallop. ABDOMEN: Soft, nontender, not distended, normoactive bowel sounds, no guarding, no rebound, no masses MUSCULOSKELETAL: Normal range of motion at all joints. No bony deformities or tenderness. No CVA tenderness. UPPER EXTREMITIES: 2+ pulses, warm, well-perfused. No cyanosis. No clubbing. No peripheral edema. LOWER EXTREMITIES: 2+ pulses, warm, well-perfused. No calf tenderness. No peripheral edema. NEUROLOGICAL: Cranial nerves II-XII intact. Normal speech. Normal gait. SKIN: Warm, dry, normal turgor, no rashes or lesions noted, normal capillary refill. Laboratory Results - last 24 hr 06/23/19 06/23/19 06/23/19 18:19 18:19 18:19 WBC 8.2 RBC 4.15 Hgb 12.9 Hct 38.0 MCV 91.4 MCH 31.0 MCHC 33.9 RDW 13.7 Plt Count 279 MPV 9.2 Absolute Neuts (auto) 5.1 Neutrophils % 62.6 Lymphocytes % 25.4 Monocytes % 10.4 H Eosinophils % 1.0 Basophils % 0.6 Nucleated RBC % 0 Sodium 139 Potassium 3.8 Chloride 105 Carbon Dioxide 30 Anion Gap 5 L BUN 9.9 Creatinine 0.6 Est GFR (CKD-EPI)AfAm 129.39 Est GFR (CKD-EPI)NonAf 111.64 Random Glucose 66 L Calcium 8.9 Total Bilirubin 0.5 AST 16 ALT 24 Alkaline Phosphatase 79 Total Protein 7.4 Albumin 4.1 Urine Color Urine Appearance Urine pH Ur Specific [place] Urine Protein Urine Glucose (UA) Urine Ketones Urine Blood Urine Nitrite Urine Bilirubin Urine Urobilinogen Ur Leukocyte Esterase Urine HCG, Qual Negative 06/23/19 18:19 WBC RBC Hgb Hct MCV MCH MCHC RDW Plt Count MPV Absolute Neuts (auto) Neutrophils % Lymphocytes % Monocytes % Eosinophils % Basophils % Nucleated RBC % Sodium Potassium Chloride Carbon Dioxide Anion Gap BUN Creatinine Est GFR (CKD-EPI)AfAm Est GFR (CKD-EPI)NonAf Random Glucose Calcium Total Bilirubin AST ALT Alkaline Phosphatase Total Protein Albumin Urine Color Yellow Urine Appearance Clear Urine pH 7.5 D Ur Specific [place] 1.005 L Urine Protein Negative Urine Glucose (UA) Negative Urine Ketones Negative Urine Blood Negative Urine Nitrite Negative Urine Bilirubin Negative Urine Urobilinogen 0.2 Ur Leukocyte Esterase Negative Urine HCG, Qual ASSESSMENT/PLAN: 44F w/ pmh of HTN presenting to [facility] w/ complaint of persistent mild spinning sensation, syncope. Spinning sensation resolved. Admitted for syncope w/u. CTH neg. # Syncope --vs vasovagal > CT H: neg for intracranial path > US Carotid --pending > Echo --pending > UDS --pending > TSH --pending > HbA1c --pending - consider EEG - Neuro Consult([facility]) -- recs pending # Chronic Essential HTN - holding home BP until medically stable FEN: - Regular Diet DVT PPX: - lovenox 40mg QD Dispo: - likely will not have home needs Family Medical History Family Hx Cardiac Disorders: Father (heart disease) Visit type - Emergency Visit Emergency Visit: Yes ED Registration Date: 06/23/19 Care time: The patient presented to the Emergency Department on the above date and was hospitalized for further evaluation of their emergent condition. - New Patient This patient is new to me today: Yes Date on this admission: 06/24/19 - Critical Care Critical Care patient: No ATTENDING PHYSICIAN STATEMENT I saw and evaluated the patient. I reviewed the resident's note and discussed the case with the resident. I agree with the resident's findings and plan as documented. SUBJECTIVE: OBJECTIVE: ASSESSMENT AND PLAN:
[2019-06-24 08:00] LABS: HEMATOCRIT 40.9 % (32.4-45.2); HEMOGLOBIN 13.6 GM/dL (10.7-15.3); MCH 30.6 pg (25.7-33.7); MCHC 33.4 g/dl (32.0-36.0); MEAN CELL VOLUME 91.7 fl (80-96); MEAN PLT VOLUME 9.5 fl (7.5-11.1); PLATELET COUNT 295 K/MM3 (134-434); RBC 4.46 M/mm3 (3.60-5.2); RDW 13.7 % (11.6-15.6); WHITE BLOOD COUNT 7.1 K/mm3 (4.0-10.0)
[2019-06-24 08:20] LABS: BLOOD UREA NITROGEN 8.3 mg/dL (7-18); CALCIUM 8.9 mg/dL (8.5-10.1); CREATININE 0.6 mg/dL (0.55-1.3); MAGNESIUM 2.4 mg/dL (1.8-2.4); PHOSPHOROUS 2.7 mg/dL (2.5-4.9)
[2019-06-24] MEDS: ENOXAPARIN NA (PORCINE) 40 MG/0.4 ML DISP.SYRIN SQ SCH (10:51)
[2019-06-24] MEDS ORDERED: MECLIZINE HCL 25 MG TABLET (FP) PO PRN (13:59)
--- NOTE | 2019-06-24 13:59 | PN ---
Progress Note, Physician Chief Complaint: Dizziness History of Present Illness: NAD dizziness intermittent, feels like as if the room is spinning Hypertensive during admission was on metoprolol at home - Current Medication List Current Medications: Active Medications Enoxaparin Sodium (Lovenox -) 40 mg SQ DAILY ANNE Last Admin: 06/24/19 10:51 Dose: 40 mg - Objective Vital Signs: Vital Signs Temperature 97.9 F 06/24/19 10:00 Pulse Rate 75 06/24/19 10:00 Respiratory Rate 18 06/24/19 10:00 Blood Pressure 145/68 06/24/19 10:00 O2 Sat by Pulse Oximetry (%) 100 06/24/19 10:07 Constitutional: Yes: Well Nourished, No Distress, Calm Cardiovascular: Yes: Regular Rate and Rhythm Respiratory: Yes: Regular Gastrointestinal: Yes: WNL Genitourinary: Yes: WNL Musculoskeletal: Yes: WNL Extremities: Yes: WNL Edema: No Peripheral Pulses WNL: Yes Neurological: Yes: Alert, Oriented Psychiatric: Yes: Alert, Oriented Labs: CBC, BMP 06/24/19 06:50 06/24/19 06:50 Problem List - Problems (1) Dizziness Assessment/Plan: -Head CT negative -U/S carotid negative -Neurology consult -Likely vertigo -meclizine 25 mg po tid for dizziness -Hold metoprolol-may worsen dizziness -Start Valsartan 40 mg po daily -Check orthostatic BP -Cardiology consult Problems reviewed: Yes Code(s): R42 - DIZZINESS AND GIDDINESS (2) Syncope Assessment/Plan: -Head CT negative -U/S carotid negative -Neurology consult -Likely vertigo -meclizine 25 mg po tid for dizziness -Hold metoprolol-may worsen dizziness -Start Valsartan 40 mg po daily -Check orthostatic BP -Cardiology consult -Tele monitor -Echo pending Problems reviewed: Yes Code(s): R55 - SYNCOPE AND COLLAPSE Qualifiers: Syncope type: unspecified Qualified Code(s): R55 - Syncope and collapse (3) Hypertension Assessment/Plan: -Hold metoprolol-may worsen dizziness -Start Valsartan 40 mg po daily -Check orthostatic BP -Cardiology consult Problems reviewed: Yes Code(s): I10 - ESSENTIAL (PRIMARY) HYPERTENSION Qualifiers: Hypertension type: essential hypertension Qualified Code(s): I10 - Essential (primary) hypertension Assessment/Plan see problem list
--- NOTE | 2019-06-24 14:10 | EKG ---
Test Reason : Blood Pressure : / mmHG Vent. Rate : 061 BPM Atrial Rate : 061 BPM P-R Int : 156 ms QRS Dur : 082 ms QT Int : 452 ms P-R-T Axes : 045 021 045 degrees QTc Int : 455 ms NORMAL SINUS RHYTHM NORMAL ECG WHEN COMPARED WITH ECG OF 23-JUN-2019 18:07, SINUS RHYTHM HAS REPLACED ECTOPIC ATRIAL RHYTHM NONSPECIFIC T WAVE ABNORMALITY, IMPROVED IN INFERIOR LEADS NONSPECIFIC T WAVE ABNORMALITY NO LONGER EVIDENT IN ANTEROLATERAL LEADS Confirmed by JOSE HARDY MD ([id number]) on 06/24/2019 2:10:00 PM Referred By: Confirmed By:JOSE HARDY MD
--- NOTE | 2019-06-24 14:14 | EKG ---
Test Reason : Blood Pressure : / mmHG Vent. Rate : 061 BPM Atrial Rate : 061 BPM P-R Int : 142 ms QRS Dur : 084 ms QT Int : 418 ms P-R-T Axes : 130 -03 079 degrees QTc Int : 420 ms UNUSUAL P AXIS, POSSIBLE ECTOPIC ATRIAL RHYTHM NONSPECIFIC T WAVE ABNORMALITY ABNORMAL ECG WHEN COMPARED WITH ECG OF 19-JUL-2018 08:22, ECTOPIC ATRIAL RHYTHM HAS REPLACED SINUS RHYTHM NONSPECIFIC T WAVE ABNORMALITY NOW EVIDENT IN INFERIOR LEADS Confirmed by JOSE HARDY MD ([id number]) on 06/24/2019 2:13:49 PM Referred By: Confirmed By:JOSE HARDY MD
[2019-06-24] MEDS: VALSARTAN 40 MG TABLET (FP) PO SCH (14:37)
--- NOTE | 2019-06-24 14:37 | CON.CARD ---
Consult Consult Specialty:: Cardiology Referred by:: Meek Luo Reason for Consultation:: Syncope - History of Present Illness Chief Complaint: syncope History of Present Illness: 44 year old woman with a pmh HTN on metoprolol admitted with an episode of syncope and dizziness. as per report pt had an episode of syncope after urinating at 3am. her found her on the floor, with LOC approx less than 1 minute. she admitted to dizziness with the room spinning after regaining consciousness. no palpitations, chest pain, sob. currently pt is asymptomatic. - History Source History Provided By: Patient Limitations to Obtaining History: Language Barrier - Past Medical History Cardio/Vascular: Yes: HTN - Alcohol/Substance Use Hx Alcohol Use: No - Smoking History Smoking history: Never smoked Have you smoked in the past 12 months: No Home Medications - Allergies Allergies/Adverse Reactions: Allergies Allergy/AdvReac Type Severity Reaction Status Date / Time No Known Allergies Allergy Verified 06/11/19 10:16 - Home Medications Home Medications: Ambulatory Orders Metoprolol Succinate [Toprol Xl] 100 mg PO DAILY 06/23/19 Family Medical History Family History: Denies Review of Systems - Review of Systems Constitutional: denies: No Symptoms, Chills, Diaphoresis, Fever, Lethargy, Loss of Appetite, Malaise, Night Sweats, Unintentional Wgt. Loss, Weakness, Other Eyes: denies: No Symptoms, Blind Spots, Blurred Vision, Double Vision, Eye Pain , Floaters, Photophobia, Recent Change in Vision, Other HENT: denies: No Symptoms, Difficult Swallowing, Ear Discharge, Ear Pain, Epistaxis, Gingival Bleeding, Hearing Loss, Mouth Swelling, Nasal Congestion, Ocular Prosthesis, Throat Pain, Toothache, Ringing in Ears, Other Neck: denies: No Symptoms, Decreased ROM, Lumps, Pain on Movement, Stiffness, Swollen Glands, Tenderness, Other Cardiovascular: denies: No Symptoms, Chest Pain, Edema, Palpitations, Shortness of Breath, Other Respiratory: denies: No Symptoms, Cough, Exercise Intolerance, Hemoptysis, Orthopnea, PND, Snoring, SOB, SOB on Exertion, Wheezing, Other Gastrointestinal: denies: No Symptoms, Abdominal Pain, Bloating, Constipation, Diarrhea, Dysphagia, Indigestion, Melena, Nausea, Rectal Bleeding, Vomiting, Vomiting Blood, Other Genitourinary: denies: No Symptoms, Burning, Discharge, Dysuria, Flank Pain, Frequency, Hematuria, Incontinence, Lesions, Menses, Pain, Testicular Mass, Testicular Pain, Testicular Swelling, Urgency, Vaginal Bleeding, Other Breasts: denies: No Symptoms Reported, See HPI, Breast Implants, Discharge from Nipple, Lumps, Pain, Skin Changes, Other Musculoskeletal: denies: No Symptoms, Back Pain, Crepitus, Decreased ROM, Extremity Pain, Joint Pain, Joint Swelling, Muscle Pain, Muscle Cramps, Muscle Weakness, Other Integumentary: denies: No Symptoms, Blister, Bruising, Change in Color, Eczema, Erythema, Incision, Lesions, Lump, Pallor, Pruritis, Rash, Wound, Other Neurological: reports: Dizziness, Syncope. denies: No Symptoms, Change in LOC, Change in Speech, Confusion, Headache, Incoordination, Numbness, Parasthesia, Pre-Existing Deficit, Seizure, Tremors, Unsteady Gait, Weakness, Other Endocrine: denies: No Symptoms, Excessive Sweating, Flushing, Increased Hunger, Increased Thirst, Intolerance to Cold, Intolerance to Heat, Unexplained Weight Gain, Unexplained Weight Loss, Other Hematology/Lymphatic: denies: No Symptoms, Easily Bruised, Excessive Bleeding, Swollen Glands, Other Psychiatric: denies: No Symptoms, Altered Sleep Pattern, Anxiety, Depression, Hallucinations, Panic, Paranoia, Suicidal, Other - Risk Factors Known Risk Factors: Yes: Hypertension Vital Signs: Vital Signs Temperature 98.3 F 06/24/19 14:00 Pulse Rate 76 06/24/19 14:24 Respiratory Rate 20 06/24/19 14:00 Blood Pressure 145/85 06/24/19 14:24 O2 Sat by Pulse Oximetry (%) 100 06/24/19 10:07 Constitutional: Yes: Well Nourished, No Distress, Calm Eyes: Yes: Conjunctiva Clear, EOM Intact HENT: Yes: Atraumatic, Normocephalic Neck: Yes: Supple, Trachea Midline Respiratory: Yes: Regular, CTA Bilaterally. No: Rales, Rhonchi, Wheezes Gastrointestinal: Yes: Normal Bowel Sounds, Soft. No: Distention, Tenderness Renal/: Yes: WNL Cardiovascular: Yes: Regular Rate and Rhythm. No: Bradycardia, Tachycardia, Pulse Irregular, Gallop, Rub, Varicosities JVD: No Carotid Bruit: No PMI: Non-Displaced Heart Sounds: Yes: S1, S2. No: Split S2, S3, S4, Clicks, Gallop, Rub, Bruit Murmur: No: Systolic Murmur, Diastolic Murmur Musculoskeletal: Yes: WNL Extremities: Yes: WNL Edema: No Peripheral Pulses WNL: Yes Peripheral Pulses: 2+ Left Doralis Pedis, 2+ Right Dorsalis Pedis Neurological: Yes: Alert, Oriented Psychiatric: Yes: Alert, Oriented - Other Data Labs, Other Data: CBC, BMP 06/24/19 06:50 06/24/19 06:50 nsr normal ecg Imaging - Results Chest X-ray: Report Reviewed, Image Reviewed EKG: Report Reviewed, Image Reviewed Other: Report Reviewed, Image Reviewed (tele-nsr, sinus tach) Assessment/Plan 44 year old woman with a pmh HTN on metoprolol admitted with an episode of syncope and dizziness. as per report pt had an episode of syncope after urinating at 3am. her found her on the floor, with LOC approx less than 1 minute. she admitted to dizziness with the room spinning after regaining consciousness. no palpitations, chest pain, sob. currently pt is asymptomatic. Syncope and dizziness -not ACS -unlikely arrhythmia or structural heart disease -orthostatic bp showed a significant drop in BP of >20mmHg from sitting to standing, pt asymptomatic -tele showed no arrhythmias -initial ekg showed possible ectopic atrial rhythm at 60bpm -Metoprolol stopped -neurology to evaluate -encouraged adequate hydration -encourage slow rise from a seated or lying position -can have echo and further event monitoring as outpatient HTN-uncontrolled on admission -metoprolol was changed to valsartan -caution with ARB if pt has plans to become otherwise acceptable medication -titrate as needed for BP control -outpatient fup.
[2019-06-25 09:30] VITALS: BP 142/86; PULSE 86; TEMP 97.8
[2019-06-25] MEDS: VALSARTAN 40 MG TABLET (FP) PO SCH (09:32)
[2019-06-25] MEDS: ENOXAPARIN NA (PORCINE) 40 MG/0.4 ML DISP.SYRIN SQ SCH (09:32)
--- NOTE | 2019-06-25 09:49 | PN ---
Progress Note, Physician Chief Complaint: Dizziness History of Present Illness: NAD dizziness intermittent, feels like as if the room is spinning Hypertensive during admission was on metoprolol at home Awaiting Neuro consult - Current Medication List Current Medications: Active Medications Enoxaparin Sodium (Lovenox -) 40 mg SQ DAILY [facility] Last Admin: 06/25/19 09:32 Dose: 40 mg Meclizine HCl (Antivert -) 25 mg PO TID PRN PRN Reason: VERTIGO Valsartan (Diovan -) 40 mg PO DAILY [facility] Last Admin: 06/25/19 09:32 Dose: 40 mg - Objective Vital Signs: Vital Signs Temperature 97.8 F 06/25/19 09:29 Pulse Rate 86 06/25/19 09:29 Respiratory Rate 18 06/25/19 09:29 Blood Pressure 142/86 06/25/19 09:29 O2 Sat by Pulse Oximetry (%) 100 06/25/19 06:00 Constitutional: Yes: Well Nourished, No Distress, Calm Cardiovascular: Yes: Regular Rate and Rhythm Respiratory: Yes: Regular Gastrointestinal: Yes: Normal Bowel Sounds, Soft Genitourinary: Yes: WNL Musculoskeletal: Yes: WNL Extremities: Yes: WNL Edema: No Peripheral Pulses WNL: Yes Neurological: Yes: Alert, Oriented Psychiatric: Yes: Alert, Oriented Labs: CBC, BMP 06/24/19 06:50 06/24/19 06:50 Problem List - Problems (1) Dizziness Assessment/Plan: -Head CT negative -U/S carotid negative -Neurology consult -Likely vertigo -meclizine 25 mg po tid for dizziness -Hold metoprolol-may worsen dizziness -Increase Valsartan to 80 mg po daily -Orthostatic BP + -Cardiology consult Problems reviewed: Yes Code(s): R42 - DIZZINESS AND GIDDINESS (2) Syncope Assessment/Plan: -Head CT negative -U/S carotid negative -Neurology consult -Likely vertigo -meclizine 25 mg po tid for dizziness -Hold metoprolol-may worsen dizziness -Cardiology consult -Tele monitor -Echo pending Problems reviewed: Yes Code(s): R55 - SYNCOPE AND COLLAPSE Qualifiers: Syncope type: unspecified Qualified Code(s): R55 - Syncope and collapse (3) Hypertension Assessment/Plan: -Hold metoprolol-may worsen dizziness -Valsartan 80 mg po daily -Orthostatic BP + -Cardiology consult Problems reviewed: Yes Code(s): I10 - ESSENTIAL (PRIMARY) HYPERTENSION Qualifiers: Hypertension type: essential hypertension Qualified Code(s): I10 - Essential (primary) hypertension Assessment/Plan see problem list
[2019-06-25] MEDS ORDERED: VALSARTAN 80 MG TABLET (UD) PO SCH (10:00)
[2019-06-25] MEDS ORDERED: VALSARTAN 40 MG TABLET (FP) PO ONE (10:00)
--- NOTE | 2019-06-25 12:10 | CON.NEURO ---
Consult - Past Medical History Cardio/Vascular: Yes: HTN - Alcohol/Substance Use Hx Alcohol Use: No - Smoking History Smoking history: Never smoked Have you smoked in the past 12 months: No Home Medications - Allergies Allergies/Adverse Reactions: Allergies Allergy/AdvReac Type Severity Reaction Status Date / Time No Known Allergies Allergy Verified 06/11/19 10:16 - Home Medications Home Medications: Ambulatory Orders Metoprolol Succinate [Toprol Xl] 100 mg PO DAILY 06/23/19 Physical Exam-Neuro Vital Signs: Vital Signs Temperature 97.8 F 06/25/19 09:29 Pulse Rate 86 06/25/19 09:29 Respiratory Rate 18 06/25/19 09:29 Blood Pressure 142/86 06/25/19 09:29 O2 Sat by Pulse Oximetry (%) 100 06/25/19 06:00 Labs: CBC, BMP 06/24/19 06:50 06/24/19 06:50 Assessment/Plan cc dizziness and syncope HPI 44 year old female hstory of HTN, came to hospital for spinning sensation and passing out episode. Patient has loc. She denies any tongue bite, incontinence, or post ictal confusion. Patient has ct head, it is is unremarkable. She denies any history of seizure, stroke, mi or any similar episode in past. She has spinning sensaito in past. TOday she is feeling and there is no spinning or dizziness feeling. PAST MEDICAL HISTORY: HTN PAST SURGICAL HISTORY: none Social History: Smoking: denies Alcohol: denies Drugs: denies Allergies No Known Allergies Allergy (Verified 06/11/19 10:16) HOME MEDICATIONS: Home Medications Medication Instructions Recorded Metoprolol Succinate [Toprol Xl] 100 mg PO DAILY 06/23/19 ROS,FH,SH reviewed in chart NEUROLOGICAL EXAMINATION Alert oriented x 3 , neck is supple , afebrile vss eomi, pupils reactive no face asymmetry moving all ext sensation is normal ct head is normal Assessment/Plan 1. Episode of spinning and syncope. unlikley to be stroke or seizure. Work up has been negative Plan: no further work up from neurological point of view patient can be discharged and follow up outpatient Thanking you so much Juan Gordon MD
== END 2019-06-25 13:28 | disposition home or self-care (01) ==
LOC: JER 17:46 → JERBED 21:44 → INTOOBSV 21:44 → J4W 06-24 01:21
PROVIDERS: ADMIT Internal Medicine; ATTEND Family Medicine
PROC: 3E013GC Introduction of Other Therapeutic Substance into Subcutaneous Tissue, Percutaneous Approach (ICD-10-PCS; principal; 2019-06-23)
DX: R42 Dizziness and giddiness (principal); R55 Syncope and collapse; I10 Essential (primary) hypertension
CPT/HCPCS: 36415; 70450-TC; 71046-TC-FY; 80048; 80053; 80307; 81003; 83036; 83735; 84100; 84443; 84703; 85025; 85027; 93005; 93010; 93880-TC; 96372; 99285-25; G0378

== ENCOUNTER 2019-08-07 18:17 | Emergency (ER) | payer OTHER ==
[2019-08-07 18:40] VITALS: BMI 25.7
--- NOTE | 2019-08-07 18:46 | PDOC ---
Rapid Medical Evaluation Chief Complaint: Headache Time Seen by Provider: 08/07/19 18:41 Medical Evaluation: Allergies Allergy/AdvReac Type Severity Reaction Status Date / Time No Known Allergies Allergy Verified 08/07/19 18:41 Vital Signs Temp Pulse Resp BP Pulse Ox 98.0 F 87 18 167/105 H 99 08/07/19 18:37 08/07/19 18:37 08/07/19 18:37 08/07/19 18:37 08/07/19 18:37 08/07/19 18:41 This patient had brief in-person evaluation in triage cc:headache HPI: Patient reports headache with elevated blood pressure PE: NAD HEENT: PERRla, EOMI clear lungs bilaterally no pedal edema Oders: urine and analgesia This patient will proceed to emergency department for further evaluation. Discharge Disposition - Diagnosis Headache - Referrals - Patient Instructions - Post Discharge Activity
[2019-08-07] MEDS ORDERED: ACETAMINOPHEN 500 MG TABLET (FP) PO ONE (20:49)
[2019-08-07] MEDS ORDERED: ACETAMINOPHEN 325 MG TABLET (FP) ONE (21:02)
[2019-08-07] MEDS ORDERED: VALSARTAN 80 MG TABLET (UD) PO ONE (21:06)
[2019-08-07] MEDS ORDERED: ASPIRIN 81 MG CHEWABLE TABLETS PO ONE (21:07)
[2019-08-07] MEDS ORDERED: ASPIRIN 81 MG CHEWABLE TABLETS ONE (21:15)
[2019-08-07] MEDS ORDERED: VALSARTAN 80 MG TABLET (UD) ONE (21:16)
--- NOTE | 2019-08-07 21:16 | PDOC ---
History of Present Illness - General Chief Complaint: Headache Stated Complaint: HEAD PAIN Time Seen by Provider: 08/07/19 18:41 History Source: Patient - History of Present Illness Initial Comments: 08/07/19 21:48 44-year-old female complaining of headache for the last 6 days. Patient reports that headache is similar to her migraine headache. Patient took 800 mg ibuprofen at home with no relief in pain. Patient reports that she is on nortriptyline for headache and valsartan for hypertension. She reports that she took her valsartan this morning. Patient reports that she has pain radiating down to her neck and shoulders. Reports chest pain with previous headaches today no chest pain. Denies dizziness,, nausea, vomiting, diarrhea, abdominal pain, diaphoresis, Past History - Past Medical History Allergies/Adverse Reactions: Allergies Allergy/AdvReac Type Severity Reaction Status Date / Time No Known Allergies Allergy Verified 08/07/19 18:41 Home Medications: Ambulatory Orders Meclizine HCl [Antivert -] 25 mg PO TID PRN #90 tablet 06/25/19 Valsartan [Diovan] 80 mg PO DAILY #30 tablet 06/25/19 COPD: No HTN: Yes Psychiatric Problems: Yes (DEPRESSION) - Psycho Social/Smoking Cessation Hx Smoking History: Never smoked Have you smoked in the past 12 months: No Information on smoking cessation initiated: No Hx Alcohol Use: No Drug/Substance Use Hx: No Substance Use Type: None Review of Systems - Review of Systems Able to Perform ROS?: Yes Is the patient limited [place] proficient: No Constitutional: No: Symptoms Reported, See HPI, Chills, Diaphoresis, Fever, Loss of Appetite, Malaise, Night Sweats, Weakness, Weight Stable, Unintentional Wgt. Loss, Unexplained wgt Loss, Other Neurological: Yes: Headache *Physical Exam - Vital Signs Last Vital Signs Temp Pulse Resp BP Pulse Ox 98.0 F 87 18 167/105 H 99 08/07/19 18:37 08/07/19 18:37 08/07/19 18:37 08/07/19 18:37 08/07/19 18:37 - Physical Exam General Appearance: Yes: Appropriately Dressed HEENT: positive: Normal ENT Inspection Respiratory/Chest: positive: Lungs Clear, Normal Breath Sounds Musculoskeletal: positive: Normal Inspection Extremity: positive: Normal Capillary Refill, Normal Inspection, Normal Range of Motion Integumentary: positive: Normal Color, Dry, Warm Neurologic: positive: knowledge analyst II-XII NML intact, Fully Oriented, Alert, Normal Mood/ Affect, Normal Response, Motor Strength 11/06 ED Treatment Course - LABORATORY CBC & Chemistry Diagram: 08/07/19 21:30 08/07/19 21:30 - RADIOLOGY Radiology Studies Ordered: Category Date Time Status CHEST PA & LAT [RAD] Stat Radiology 08/07/19 21:07 Ordered - Medications Given in the ED: ED Medications Discontinued Medications Generic Name Dose Route Start Last Admin Trade Name Sigifredo PRN Reason Stop Dose Admin Acetaminophen 1,000 mg 08/07/19 20:49 08/07/19 21:11 Tylenol - PO 08/07/19 20:50 1,000 mg ONCE ONE Administration ED Progress Note - Progress Note Progress Note: headache; / migraine P: labs cbc cmp IVF reglan pain control Medical Decision Making - Medical Decision Making 08/07/19 23:32 patient is now feeling better. will d/c home Discharge - Discharge Information Problems reviewed: Yes Clinical Impression/Diagnosis: Headache Qualifiers: Headache type: unspecified Headache chronicity pattern: acute headache Intractability: intractable Qualified Code(s): R51 - Headache Hypertension Qualifiers: Hypertension type: unspecified Qualified Code(s): I10 - Essential (primary) hypertension Condition: Improved Disposition: HOME - Follow up/Referral Referrals: Dane Hancock [Primary Care Provider] - - Patient Discharge Instructions Patient Printed Discharge Instructions: Migraine -- Adult Additional Instructions: Drink plenty of fluids. It is very important that you follow-up with the neurologist as soon as possible It is also important that you follow-up with your primary care doctor for your blood pressure management. Return to the emergency room for any worsening symptoms - Post Discharge Activity Work/Back to School Note: Back to Work
[2019-08-07 21:41] LABS: BASO % 0.5 % (0-2.0); EOS % 1.1 % (0-4.5); HEMATOCRIT 38.4 % (32.4-45.2); LYMPH % 23.1 % (8-40); MCH 31.1 pg (25.7-33.7); MEAN CELL VOLUME 91.6 fl (80-96); MEAN PLT VOLUME 9.2 fl (7.5-11.1); MONO % 8.9 % (3.8-10.2); NEUT % 66.4 % (42.8-82.8); PLATELET COUNT 272 K/MM3 (134-434); RBC 4.19 M/mm3 (3.60-5.2); RDW 14.2 % (11.6-15.6); WHITE BLOOD COUNT 8.7 K/mm3 (4.0-10.0)
[2019-08-07] MEDS ORDERED: SODIUM CHLORIDE 0.9% 500 ML INFUS.BAG IV ONE (21:47)
[2019-08-07] MEDS ORDERED: METOCLOPRAMIDE HCL INJECTION 10 MG/2 ML VIAL IVPB ONE (21:47)
[2019-08-07 21:57] LABS: INR 0.99 (0.83-1.09); PROTHROMBIN TIME (PATIENT) 11.7 SEC (9.7-13.0)
[2019-08-07] MEDS ORDERED: METOCLOPRAMIDE HCL INJECTION 10 MG/2 ML VIAL ONE (21:57)
[2019-08-07 22:00] LABS: ACTIVATED PTT 33.8 SECONDS (25.2-36.5)
[2019-08-07 22:28] LABS: ALBUMIN 4.2 g/dl (3.4-5.0); ALK PHOS 80 U/L (45-117); ANION GAP 7 MMOL/L (8-16); BILIRUBIN,TOTAL 0.6 mg/dL (0.2-1); BLOOD UREA NITROGEN 8.2 mg/dL (7-18); CALCIUM 9.2 mg/dL (8.5-10.1); CHLORIDE 106 mmol/L (98-107); CO2 27 mmol/L (21-32); CREATININE 0.6 mg/dL (0.55-1.3); GLUCOSE,RANDOM 86 mg/dL (74-106); MAGNESIUM 2.4 mg/dL (1.8-2.4); POTASSIUM 3.6 mmol/L (3.5-5.1); SGOT/AST 14 U/L (15-37); SGPT/ALT 21 U/L (13-61); SODIUM 140 mmol/L (136-145); TOT PROT 7.8 g/dl (6.4-8.2)
[2019-08-07 23:46] VITALS: BP 159/100; PULSE 83; TEMP 97.9
== END 2019-08-08 00:54 | disposition home or self-care (01) ==
LOC: JER 18:17
PROC: 3E033GC Introduction of Other Therapeutic Substance into Peripheral Vein, Percutaneous Approach (ICD-10-PCS; principal; 2019-08-07)
DX: G43.909 Migraine, unspecified, not intractable, without status migrainosus (principal); I10 Essential (primary) hypertension; F32.9 Major depressive disorder, single episode, unspecified
CPT/HCPCS: 36415; 71046-TC-FY; 80053; 82550; 83735; 84484; 85025; 85610; 85730; 96374; 99282-25

== ENCOUNTER 2019-10-28 09:46 | Emergency (ER) | payer OTHER ==
[2019-10-28 10:04] VITALS: BP 152/96; PULSE 121; TEMP 98.9; BMI 22.6
[2019-10-28] MEDS ORDERED: FAMOTIDINE 20 MG TABLET PO ONE (10:44)
[2019-10-28] MEDS ORDERED: predniSONE 20 MG TABLET (UD) PO SCH (10:45)
[2019-10-28] MEDS ORDERED: predniSONE 20 MG TABLET (UD) ONE ×2 (10:52→11:00)
[2019-10-28] MEDS ORDERED: predniSONE 10 MG TABLET (UD) ONE ×2 (10:53→11:00)
[2019-10-28] MEDS ORDERED: FAMOTIDINE 20 MG TABLET ONE ×2 (10:53→11:00)
--- NOTE | 2019-10-28 11:21 | PDOC ---
History of Present Illness - General Chief Complaint: Rash Stated Complaint: ALLERGIC REACTION Time Seen by Provider: 10/28/19 10:07 History Source: Patient Exam Limitations: No Limitations - History of Present Illness Initial Comments: 10/28/19 11:12 44-year-old female history of hypertension presents complaining of general itching and intermittent hives x3 weeks. Symptoms began after she started using a new detergent and soap at home. Denies shortness of breath, nausea, vomiting, abdominal pain, difficulty speaking, neck swelling or throat closing sensation. She phoned her PMD 1 week ago who prescribed Benadryl 25 mg as needed, Medrol Dosepak which she completed, and "steroid cream". Patient states symptoms have not resolved, at times they slightly improve however she is requesting a second opinion. ROS: GENERAL/CONSTITUTIONAL: No fever, chills, weakness, dizziness HEAD, EYES, EARS, NOSE AND THROAT: No changes in vision, No ear pain or discharge, No sore throat CARDIOVASCULAR: No chest pain RESPIRATORY: No shortness of breath or cough GASTROINTESTINAL: No pain, nausea, vomiting, diarrhea or constipation GENITOURINARY: No dysuria MUSCULOSKELETAL: No neck or back pain SKIN: Intermittent itchy rash NEUROLOGIC: No headache, vertigo, loss of consciousness, or loss of sensation PE: GENERAL: well-appearing, NAD HEAD: NCAT EYES: Pupils equal, round and reactive to light, sclera anicteric, conjunctiva clear ENT: pharynx: no erythema, no exudate, uvula midline NECK: supple CHEST: nontender RESP: clear, no w/r/r CARDIO: rrr, no m/g/r ABD: +BS, soft, nontender, non distended BACK: no midline spinal ttp, no CVAT EXTREMITIES: Normal range of motion, no edema NEUROLOGICAL: Normal speech, normal gait SKIN: Small scattered hives noted to bilateral upper and lower extremities, no rash noted to chest, abdomen, back, hands or feet, no excoriations noted Is this a multiple visit Asthma Patient?: No Past History - Past Medical History Allergies/Adverse Reactions: Allergies Allergy/AdvReac Type Severity Reaction Status Date / Time No Known Allergies Allergy Verified 10/28/19 10:41 Home Medications: Ambulatory Orders Meclizine HCl [Antivert -] 25 mg PO TID PRN #90 tablet 06/25/19 Valsartan [Diovan] 80 mg PO DAILY #30 tablet 06/25/19 Diphenhydramine [Benadryl -] 50 mg PO DAILY 10 Days #12 capsule 10/28/19 Prednisone [Prednisone 50 MG TABLETS] 50 mg PO DAILY #4 tablet 10/28/19 COPD: No HTN: Yes Psychiatric Problems: Yes (DEPRESSION) - Immunization History TDAP Vaccination: Yes Immunization Up to Date: Yes - Psycho Social/Smoking Cessation Hx Smoking History: Never smoked Have you smoked in the past 12 months: No Information on smoking cessation initiated: No Hx Alcohol Use: No Drug/Substance Use Hx: No Substance Use Type: None *Physical Exam - Vital Signs Last Vital Signs Temp Pulse Resp BP Pulse Ox 98.9 F 121 H 18 152/96 99 10/28/19 09:53 10/28/19 09:53 10/28/19 09:53 10/28/19 09:53 10/28/19 10:35 Medical Decision Making - Medical Decision Making 10/28/19 11:14 44-year-old female with history of hypertension and "skin allergies "complaining of intermittent itchy rash x3 weeks. Noted after using new detergent and new soap at home. Speaking full sentences lungs are clear Small hives noted to upper and lower extremities Benadryl 50 mg IM P.o. Pepcid We will discharge with p.o. Benadryl and p.o. prednisone Discharge - Discharge Information Problems reviewed: Yes Clinical Impression/Diagnosis: Rash Condition: Stable Disposition: HOME - Admission No - Follow up/Referral Referrals: Dane Hancock [Primary Care Provider] - - Patient Discharge Instructions Additional Instructions: Take Benadryl and prednisone as directed Follow-up with your primary care doctor within 1 week Return to ED if shortness of breath, difficulty breathing, throat closing sensation, neck swelling or any concerning symptoms - Post Discharge Activity
== END 2019-10-28 11:45 | disposition home or self-care (01) ==
LOC: JERFT 09:46
PROC: 3E023GC Introduction of Other Therapeutic Substance into Muscle, Percutaneous Approach (ICD-10-PCS; principal; 2019-10-28)
DX: R21 Rash and other nonspecific skin eruption (principal)
CPT/HCPCS: 96372; 99284-25

== ENCOUNTER 2020-08-12 09:26 | Emergency (ER) | payer OTHER ==
[2020-08-12 09:36] VITALS: BP 148/89; PULSE 84; TEMP 97.9; BMI 23.3
[2020-08-12] MEDS ORDERED: METOCLOPRAMIDE HCL INJECTION 10 MG/2 ML VIAL IVPB ONE (10:39)
[2020-08-12] MEDS ORDERED: KETOROLAC TROMETHAMINE 30 MG/1 ML VIAL IVPUSH ONE (10:39)
[2020-08-12] MEDS ORDERED: KETOROLAC TROMETHAMINE 30 MG/1 ML VIAL ONE (11:12)
[2020-08-12] MEDS ORDERED: METOCLOPRAMIDE HCL INJECTION 10 MG/2 ML VIAL ONE (11:12)
== END 2020-08-12 12:01 | disposition home or self-care (01) ==
LOC: JER 09:26
PROC: 3E0233Z Introduction of Anti-inflammatory into Muscle, Percutaneous Approach (ICD-10-PCS; principal; 2020-08-12)
PROC: 3E033NZ Introduction of Analgesics, Hypnotics, Sedatives into Peripheral Vein, Percutaneous Approach (ICD-10-PCS; 2020-08-12)
DX: R51.9 Headache, unspecified (principal)
CPT/HCPCS: 99285-25

== ENCOUNTER 2020-08-28 07:22 | Emergency (ER) | payer OTHER ==
[2020-08-28 07:57] VITALS: BMI 26.1
[2020-08-28] MEDS ORDERED: METOCLOPRAMIDE HCL INJECTION 10 MG/2 ML VIAL IVPB ONE (08:39)
[2020-08-28] MEDS ORDERED: ONDANSETRON 4 MG/2 ML VIAL IVPUSH ONE (08:40)
[2020-08-28] MEDS ORDERED: METOCLOPRAMIDE HCL INJECTION 10 MG/2 ML VIAL ONE (10:02)
[2020-08-28] MEDS ORDERED: ONDANSETRON 4 MG/2 ML VIAL ONE (10:02)
[2020-08-28 10:05] LABS: PH,URINE 7.5 (5.0-8.0); URINE APPEARANCE CLEAR; URINE BILIRUBIN NEGATIVE (NEGATIVE); URINE COLOR YELLOW; URINE GLUCOSE (UA) NEGATIVE (NEGATIVE); URINE KETONE NEGATIVE (NEGATIVE); URINE LEUK ESTERASE NEGATIVE (NEGATIVE); URINE NITRITE NEGATIVE (NEGATIVE); URINE PROTEIN NEGATIVE (NEGATIVE); URINE UROBILINOGEN 0.2 mg/dL (0.2-1.0)
[2020-08-28 10:08] LABS: BASO % 0.3 % (0-2.0); EOS % 0.1 % (0-4.5); HEMOGLOBIN 13.2 GM/dL (10.7-15.3); INR 1.02 (0.83-1.09); LYMPH % 7.2 % (8-40); MCH 30.9 pg (25.7-33.7); MCHC 33.8 g/dl (32.0-36.0); MEAN CELL VOLUME 91.5 fl (80-96); MEAN PLT VOLUME 9.9 fl (7.5-11.1); MONO % 5.3 % (3.8-10.2); NEUT % 87.1 % (42.8-82.8); PLATELET COUNT 291 K/MM3 (134-434); PROTHROMBIN TIME (PATIENT) 12.5 SEC (9.7-13.0); RBC 4.26 M/mm3 (3.60-5.2); RDW 14.1 % (11.6-15.6); WHITE BLOOD COUNT 12.8 K/mm3 (4.0-10.0)
[2020-08-28 10:10] LABS: CHLORIDE 101 mmol/L (98-107); POTASSIUM 3.7 mmol/L (3.5-5.1); SODIUM 137 mmol/L (136-145)
[2020-08-28 10:11] LABS: ACTIVATED PTT 27.2 SECONDS (25.2-36.5)
[2020-08-28 10:15] LABS: ALBUMIN 4.3 g/dl (3.4-5.0); ANION GAP 4 MMOL/L (8-16); BLOOD UREA NITROGEN 10.4 mg/dL (7-18); CALCIUM 9.7 mg/dL (8.5-10.1); CO2 32 mmol/L (21-32); GLUCOSE,RANDOM 89 mg/dL (74-106)
[2020-08-28 10:17] LABS: CREATININE 0.8 mg/dL (0.55-1.3); SGOT/AST 16 U/L (15-37); SGPT/ALT 30 U/L (13-61)
[2020-08-28 10:19] LABS: BILIRUBIN,TOTAL 0.5 mg/dL (0.2-1); TOT PROT 8.1 g/dl (6.4-8.2)
[2020-08-28 10:21] LABS: ALK PHOS 79 U/L (45-117)
[2020-08-28 11:50] LABS: LIPASE 112 U/L (73-393)
[2020-08-28 14:05] VITALS: BP 130/79; PULSE 78; TEMP 98.1
== END 2020-08-28 14:05 | disposition home or self-care (01) ==
LOC: JER 07:22
PROC: 3E033GC Introduction of Other Therapeutic Substance into Peripheral Vein, Percutaneous Approach (ICD-10-PCS; principal; 2020-08-28)
PROC: 3E033GC Introduction of Other Therapeutic Substance into Peripheral Vein, Percutaneous Approach (ICD-10-PCS; 2020-08-28)
DX: R55 Syncope and collapse (principal); R51.9 Headache, unspecified
CPT/HCPCS: 36415; 71045-TC-FY; 74177-TC; 80053; 81003; 83690; 84484; 84703; 85025; 85610; 85730; 87086; 93005; 93010; 99285-25; Q9967

== ENCOUNTER 2020-11-26 19:33 | Emergency (ER) | payer OTHER ==
[2020-11-26 19:40] VITALS: BP 147/68; PULSE 80; TEMP 98.2; BMI 24.3
[2020-11-26 21:22] LABS: BASO % 0.3 % (0-2.0); EOS % 1.2 % (0-4.5); HEMATOCRIT 32.5 % (32.4-45.2); HEMOGLOBIN 10.9 GM/dL (10.7-15.3); MCH 31.3 pg (25.7-33.7); MCHC 33.6 g/dl (32.0-36.0); MEAN CELL VOLUME 93.2 fl (80-96); MEAN PLT VOLUME 8.8 fl (7.5-11.1); MONO % 6.5 % (3.8-10.2); PLATELET COUNT 270 K/MM3 (134-434); RBC 3.48 M/mm3 (3.60-5.2); WHITE BLOOD COUNT 9.8 K/mm3 (4.0-10.0)
[2020-11-26 21:51] LABS: ALBUMIN 3.8 g/dl (3.4-5.0); BLOOD UREA NITROGEN 8.1 mg/dL (7-18); CALCIUM 8.5 mg/dL (8.5-10.1)
[2020-11-26 21:55] LABS: CREATININE 0.7 mg/dL (0.55-1.3)
[2020-11-26 21:56] LABS: BILIRUBIN,TOTAL 0.3 mg/dL (0.2-1); TOT PROT 6.8 g/dl (6.4-8.2)
== END 2020-11-26 22:40 | disposition home or self-care (01) ==
LOC: JERFT 19:33
DX: R60.9 Edema, unspecified (principal); M79.604 Pain in right leg; M79.605 Pain in left leg
CPT/HCPCS: 36415; 80053; 85025; 93970-TC; 99284-25

== ENCOUNTER 2020-12-10 10:13 | Emergency (ER) | payer OTHER ==
[2020-12-10 10:26] VITALS: BP 152/94; PULSE 87; TEMP 98.5; BMI 23.6
== END 2020-12-10 11:18 | disposition home or self-care (01) ==
LOC: JER 10:13
DX: R07.0 Pain in throat (principal)
CPT/HCPCS: 87880; 99283-25

== ENCOUNTER 2021-11-29 08:28 | Emergency (ER) | payer OTHER ==
[2021-11-29 08:45] VITALS: BP 149/89; PULSE 98; TEMP 98.1; BMI 22.6
== END 2021-11-29 09:58 | disposition home or self-care (01) ==
LOC: JER 08:28
DX: B34.9 Viral infection, unspecified (principal)
CPT/HCPCS: 0241U-QW; 87070; 99284-25

== ENCOUNTER 2022-03-29 20:47 | Day surgery (SDC) | payer OTHER ==
[2022-03-29] MEDS ORDERED: ACETAMINOPHEN 325 MG TABLET (FP) PO ONE (21:44)
[2022-03-29] MEDS ORDERED: ONDANSETRON 4 MG TABLET PO ONE (21:48)
[2022-03-29] MEDS ORDERED: ACETAMINOPHEN 325 MG TABLET (FP) ONE (22:32)
[2022-03-29] MEDS ORDERED: ONDANSETRON *ODT* 4 MG TABLET ONE (22:32)
[2022-03-29 22:48] LABS: BASO % 0.5 % (0-2.0); EOS % 0.5 % (0-4.5); HEMATOCRIT 34.2 % (32.4-45.2); HEMOGLOBIN 11.3 GM/dL (10.7-15.3); LYMPH % 16.1 % (8-40); MCH 27.7 pg (25.7-33.7); MCHC 32.9 g/dl (32.0-36.0); MEAN CELL VOLUME 84.3 fl (80-96); MONO % 7.6 % (3.8-10.2); NEUT % 75.3 % (42.8-82.8); PLATELET COUNT 370 10^3/uL (134-434); RBC 4.06 M/mm3 (3.60-5.2); RDW 15.9 % (11.6-15.6); WHITE BLOOD COUNT 12.9 K/mm3 (4.0-10.0)
[2022-03-29 22:58] LABS: EPI CELLS 21 /uL (0-25.1); HYALINE CASTS 0 /uL (0-3.1); URINE APPEARANCE CLEAR; URINE BACTERIA 476 /uL (0-1359); URINE BILIRUBIN NEGATIVE (NEGATIVE); URINE COLOR YELLOW; URINE GLUCOSE (UA) NEGATIVE (NEGATIVE); URINE KETONE NEGATIVE (NEGATIVE); URINE LEUK ESTERASE TRACE (NEGATIVE); URINE NITRITE NEGATIVE (NEGATIVE); URINE PROTEIN NEGATIVE (NEGATIVE); URINE UROBILINOGEN 0.2 mg/dL (0.2-1.0); URINE WBC 14 /uL (0-25.8)
[2022-03-29 23:11] LABS: CALCIUM 8.9 mg/dL (8.5-10.1)
[2022-03-29 23:12] LABS: ALBUMIN 3.9 g/dl (3.4-5.0)
[2022-03-29 23:15] LABS: CREATININE 0.8 mg/dL (0.55-1.3)
[2022-03-29 23:16] LABS: BILIRUBIN,TOTAL 0.5 mg/dL (0.2-1); TOT PROT 7.6 g/dl (6.4-8.2)
[2022-03-29 23:20] LABS: URINE RBC 26 /uL (0-23.9)
[2022-03-29] MEDS ORDERED: morphine CARPU-JECT 4 MG/1 ML DISP.SYRIN IVPUSH ONE (23:52)
[2022-03-29] MEDS ORDERED: morphine SULFATE 4 MG/ML VIAL ONE (23:58)
[2022-03-30] MEDS ORDERED: SODIUM CHLORIDE 0.9% 500 ML INFUS.BAG IV ONE (02:35)
[2022-03-30] MEDS ORDERED: CEFTRIAXONE 1,000 MG in DEXTROSE 5%-WATER - 50 ML IVPB ONE (02:39)
[2022-03-30] MEDS ORDERED: CEFTRIAXONE 2,000 MG in DEXTROSE 5%-WATER - 50 ML IVPB ONE (02:42)
[2022-03-30] MEDS ORDERED: ONDANSETRON 4 MG/2 ML VIAL ONE ×2 (02:47→12:56)
[2022-03-30] MEDS ORDERED: ONDANSETRON 4 MG/2 ML VIAL IVPUSH ONE (02:47)
[2022-03-30] MEDS ORDERED: CEFTRIAXONE 2 GM/100 ML BAG IVPB ONE ×2 (02:48→02:49)
[2022-03-30] MEDS ORDERED: PROCHLORPERAZINE INJECTION 10 MG/2 ML VIAL IVPB PRN ×2 (06:31→13:26)
[2022-03-30] MEDS ORDERED: PROCHLORPERAZINE INJECTION 10 MG/2 ML VIAL ONE (08:23)
[2022-03-30] MEDS ORDERED: morphine CARPU-JECT 2 MG/1 ML DISP.SYRIN IVPUSH PRN (08:31)
[2022-03-30] MEDS ORDERED: LACTATED RINGERS SOLUTION 1,000 ML/1,000 ML INFUS.BAG IV SCH (08:45)
[2022-03-30] MEDS ORDERED: BUPIVACAINE HCL/PF 0.5% (5MG/ML) 10 ML VIAL ONE ×2 (09:30→10:42)
[2022-03-30] MEDS ORDERED: MIDAZOLAM HCL 2 MG/2 ML SINGLE DOSE VIAL ONE (10:29)
[2022-03-30] MEDS ORDERED: BUPIVACAINE HCL/PF 0.5% (5MG/ML) 10 ML VIAL IJ ONE ×3 (11:40)
[2022-03-30] MEDS ORDERED: PROMETHAZINE HCL 25 MG/1 ML VIAL ONE ×2 (12:26→13:10)
[2022-03-30] MEDS ORDERED: oxyCODONE HCL 5 MG TABLET PO PRN (13:04)
[2022-03-30] MEDS ORDERED: PROMETHAZINE HCL 25 MG/1 ML VIAL IVPUSH PRN (13:04)
[2022-03-30] MEDS ORDERED: ONDANSETRON 4 MG/2 ML VIAL IVPUSH PRN (13:04)
[2022-03-30] MEDS ORDERED: LACTATED RINGERS SOLUTION 1,000 ML IV SCH (13:15)
[2022-03-30] MEDS ORDERED: PIPERACILLIN/TAZOB 4.5 GM 4.5 GM in DEXTROSE 5%-WATER 100 ML IVPB SCH (16:00)
[2022-03-30] MEDS: PIPERACILLIN/TAZOB 4.5 GM 4.5 GM in DEXTROSE 5%-WATER 100 ML IVPB SCH (16:20)
[2022-03-30] MEDS ORDERED: PIPERACILLIN/TAZOBACTAM 4.5 GM VIAL IVPB ONE (16:20)
[2022-03-30 18:41] LABS: HEMATOCRIT 30.5 % (32.4-45.2); HEMOGLOBIN 10.2 GM/dL (10.7-15.3); MCH 27.7 pg (25.7-33.7); MCHC 33.5 g/dl (32.0-36.0); MEAN CELL VOLUME 82.9 fl (80-96); MEAN PLT VOLUME 8.2 fl (7.5-11.1); PLATELET COUNT 328 10^3/uL (134-434); RBC 3.68 M/mm3 (3.60-5.2); RDW 15.8 % (11.6-15.6); WHITE BLOOD COUNT 19.4 K/mm3 (4.0-10.0)
[2022-03-30] MEDS ORDERED: KETOROLAC TROMETHAMINE 30 MG/1 ML VIAL ONE (21:13)
[2022-03-30] MEDS ORDERED: KETOROLAC TROMETHAMINE 30 MG/1 ML VIAL IVPUSH ONE (21:14)
[2022-03-30 23:26] VITALS: BMI 24.8
[2022-03-31] MEDS: PIPERACILLIN/TAZOB 4.5 GM 4.5 GM in DEXTROSE 5%-WATER 100 ML IVPB SCH ×2 (01:43→10:26)
[2022-03-31] MEDS: KETOROLAC TROMETHAMINE 30 MG/1 ML VIAL IVPUSH SCH ×2 (01:44→11:00)
[2022-03-31 07:08] VITALS: RESP 20
[2022-03-31 13:18] LABS: BASO % 0.2 % (0-2.0); HEMATOCRIT 22.9 % (32.4-45.2); HEMOGLOBIN 7.5 GM/dL (10.7-15.3); LYMPH % 11.1 % (8-40); MCH 27.5 pg (25.7-33.7); MCHC 32.8 g/dl (32.0-36.0); MEAN PLT VOLUME 8.2 fl (7.5-11.1); MONO % 8.8 % (3.8-10.2); NEUT % 79.9 % (42.8-82.8); PLATELET COUNT 308 10^3/uL (134-434); RBC 2.72 M/mm3 (3.60-5.2); RDW 16.6 % (11.6-15.6)
[2022-03-31 14:12] LABS: ALBUMIN 3.3 g/dl (3.4-5.0); BLOOD UREA NITROGEN 11.1 mg/dL (7-18); CALCIUM 8.8 mg/dL (8.5-10.1); MAGNESIUM 2.1 mg/dL (1.8-2.4)
[2022-03-31 14:15] LABS: CREATININE 0.8 mg/dL (0.55-1.3)
[2022-03-31 14:17] LABS: BILIRUBIN,TOTAL 0.7 mg/dL (0.2-1); TOT PROT 6.1 g/dl (6.4-8.2)
[2022-03-31] MEDS ORDERED: AMOX TR/POT CLAV 875MG/125MG TABLETS (FP) PO ONE (15:11)
[2022-03-31] MEDS ORDERED: FERROUS SO4 325 MG TABLET (FP) PO ONE (15:12)
[2022-03-31 15:20] VITALS: BP 141/78; PULSE 114; TEMP 98.6
[2022-03-31 16:23] LABS: BASO % 0.3 % (0-2.0); EOS % 0.7 % (0-4.5); HEMATOCRIT 35.5 % (32.4-45.2); HEMOGLOBIN 11.5 GM/dL (10.7-15.3); LYMPH % 2.4 % (8-40); MCH 33.2 pg (25.7-33.7); MCHC 32.2 g/dl (32.0-36.0); MEAN CELL VOLUME 103.1 fl (80-96); MEAN PLT VOLUME 9.4 fl (7.5-11.1); MONO % 6.7 % (3.8-10.2); NEUT % 89.9 % (42.8-82.8); PLATELET COUNT 138 10^3/uL (134-434); RBC 3.45 M/mm3 (3.60-5.2); RDW 18.2 % (11.6-15.6)
== END 2022-03-31 17:23 | disposition home or self-care (01) ==
LOC: JER 20:47 → UNDOADMIN 03-30 04:26 → JERBED 03-30 04:26 → SUATTDRO 03-30 15:33 → JASUSAT 03-30 15:33 → JERBED 03-30 15:43 → J8W 03-30 21:37 → JASUSAT 03-31 17:23
PROVIDERS: ATTEND Nurse Practitioner Family
PROC: 0DTJ4ZZ Resection of Appendix, Percutaneous Endoscopic Approach (ICD-10-PCS; principal; 2022-03-30 11:36)
DX: K35.80 Unspecified acute appendicitis (principal)
CPT/HCPCS: 36415; 74177-TC; 80053; 81003; 83690; 83735; 84703; 85025; 85027; 87086; 88304-TC; 93005; 93010; 94760; 99285-25; C9803-CS; Q9967; U0003; U0005

== ENCOUNTER 2022-06-05 09:48 | Emergency (ER) | payer OTHER ==
[2022-06-05 09:58] VITALS: BP 150/84; PULSE 94; RESP 18; TEMP 97.9; BMI 22.8
[2022-06-05 11:52] LABS: EOS % 0.7 % (0-4.5); HEMATOCRIT 38.2 % (32.4-45.2); HEMOGLOBIN 12.8 GM/dL (10.7-15.3); LYMPH % 19.7 % (8-40); MCH 29.1 pg (25.7-33.7); MCHC 33.6 g/dl (32.0-36.0); MEAN CELL VOLUME 86.5 fl (80-96); MEAN PLT VOLUME 7.7 fl (7.5-11.1); MONO % 6.6 % (3.8-10.2); PLATELET COUNT 377 10^3/uL (134-434); RBC 4.42 M/mm3 (3.60-5.2); WHITE BLOOD COUNT 7.3 K/mm3 (4.0-10.0)
[2022-06-05 12:18] LABS: ALBUMIN 4.5 g/dl (3.4-5.0); CALCIUM 10.2 mg/dL (8.5-10.1)
[2022-06-05 12:19] LABS: BLOOD UREA NITROGEN 7.9 mg/dL (7-18); MAGNESIUM 2.3 mg/dL (1.8-2.4)
[2022-06-05 12:21] LABS: CREATININE 0.8 mg/dL (0.55-1.3)
[2022-06-05 12:22] LABS: PHOSPHOROUS 4.2 mg/dL (2.5-4.9)
[2022-06-05 12:23] LABS: BILIRUBIN,TOTAL 0.7 mg/dL (0.2-1); TOT PROT 8.3 g/dl (6.4-8.2)
== END 2022-06-05 13:51 | disposition home or self-care (01) ==
LOC: JERFT 09:48
DX: R20.2 Paresthesia of skin (principal)
CPT/HCPCS: 36415; 80053; 82607; 83735; 84100; 85025; 99283-25

== ENCOUNTER 2022-11-25 16:20 | Emergency (ER) | payer OTHER ==
[2022-11-25 16:30] VITALS: BP 136/93; PULSE 99; RESP 16; TEMP 98.3; BMI 23.3
== END 2022-11-25 18:34 | disposition home or self-care (01) ==
LOC: JERFT 16:20
DX: J02.9 Acute pharyngitis, unspecified (principal); R68.83 Chills (without fever); R53.83 Other fatigue; R13.12 Dysphagia, oropharyngeal phase; J03.90 Acute tonsillitis, unspecified
CPT/HCPCS: 99282-25

== ENCOUNTER 2023-09-17 08:10 | Emergency (ER) | payer OTHER ==
[2023-09-17 08:19] VITALS: BP 154/83; PULSE 141; RESP 20; BMI 23.3
[2023-09-17] MEDS ORDERED: ACETAMINOPHEN 500 MG TABLET (FP) ONE (09:32)
[2023-09-17] MEDS: ACETAMINOPHEN 500 MG TABLET (FP) PO ONE (10:30)
[2023-09-17 11:27] LABS: BASO % 0.4 % (0-2.0); HEMATOCRIT 33.9 % (32.4-45.2); HEMOGLOBIN 11.5 GM/dL (10.7-15.3); LYMPH % 8.4 % (8-40); MCH 29.5 pg (25.7-33.7); MEAN CELL VOLUME 86.7 fl (80-96); MEAN PLT VOLUME 7.9 fl (7.5-11.1); MONO % 12.2 % (3.8-10.2); PLATELET COUNT 305 10^3/uL (134-434); RBC 3.91 M/mm3 (3.60-5.2); RDW 15.5 % (11.6-15.6); WHITE BLOOD COUNT 10.5 K/mm3 (4.0-10.0)
[2023-09-17 11:30] LABS: HCG,QUALITATIVE URINE Negative
[2023-09-17 11:31] LABS: EPI CELLS 9 /uL (0-25.1); HYALINE CASTS 0 /uL (0-3.1); PH,URINE 7.5 (5.0-8.0); URINE APPEARANCE CLOUDY; URINE BACTERIA >9,000 /uL (0-1359); URINE BILIRUBIN NEGATIVE (NEGATIVE); URINE COLOR YELLOW; URINE GLUCOSE (UA) NEGATIVE (NEGATIVE); URINE KETONE NEGATIVE (NEGATIVE); URINE LEUK ESTERASE 3+ (NEGATIVE); URINE NITRITE POSITIVE (NEGATIVE); URINE PROTEIN 1+ (NEGATIVE); URINE RBC 2189 /uL (0-23.9); URINE WBC 684 /uL (0-25.8)
[2023-09-17 11:40] LABS: POTASSIUM 3.9 mmol/L (3.5-5.1)
[2023-09-17 11:43] LABS: ALBUMIN 3.6 g/dl (3.4-5.0); BLOOD UREA NITROGEN 9.5 mg/dL (7-18); CALCIUM 8.9 mg/dL (8.5-10.1)
[2023-09-17] MEDS ORDERED: CEFTRIAXONE 1 GM/50 ML BAG ONE (11:44)
[2023-09-17 11:45] LABS: CREATININE 0.8 mg/dL (0.55-1.3)
[2023-09-17 11:47] LABS: BILIRUBIN,TOTAL 0.7 mg/dL (0.2-1); TOT PROT 7.5 g/dl (6.4-8.2)
[2023-09-17] MEDS: SODIUM CHLORIDE 0.9% 500 ML INFUS.BAG IV ONE (11:49)
[2023-09-17] MEDS: CEFTRIAXONE 1,000 MG in DEXTROSE 5%-WATER - 50 ML IVPB ONE (11:49)
[2023-09-17 11:55] VITALS: TEMP 98.4
== END 2023-09-17 13:51 | disposition home or self-care (01) ==
LOC: JER 08:10
DX: R10.30 Lower abdominal pain, unspecified (principal); R50.9 Fever, unspecified; R30.0 Dysuria; R51.9 Headache, unspecified; N12 Tubulo-interstitial nephritis, not specified as acute or chronic
CPT/HCPCS: 36415; 74177-TC; 80053; 81003; 84703; 85025; 87086; 87186; 93005; 93010; 99285-25; Q9967

== ENCOUNTER 2024-08-27 10:20 | Emergency (ER) | payer OTHER ==
[2024-08-27 10:25] VITALS: BP 131/81; PULSE 73; RESP 18; TEMP 97.4; BMI 24.1
[2024-08-27] MEDS ORDERED: KETOROLAC TROMETHAMINE 30 MG/1 ML VIAL ONE (12:21)
[2024-08-27] MEDS: KETOROLAC TROMETHAMINE 30 MG/1 ML VIAL IM ONE (12:34)
== END 2024-08-27 12:37 | disposition home or self-care (01) ==
LOC: JERFT 10:20 → JER 10:20 → JERFT 12:37
PROC: 3E0233Z Introduction of Anti-inflammatory into Muscle, Percutaneous Approach (ICD-10-PCS; principal; 2024-08-27)
DX: M25.562 Pain in left knee (principal); M25.462 Effusion, left knee; G89.29 Other chronic pain
CPT/HCPCS: 73562-TC-LT-FY; 96372; 99284-25